=== PATIENT | female | born 1985 | race African-American/Black ===

== ENCOUNTER 2020-05-06 07:12 | Emergency (ER) | payer MEDICAID ==
[2020-05-06] MEDS ORDERED: Metoclopramide 10 MG/2 ML SDV IVPUSH ONE (07:44)
[2020-05-06] MEDS ORDERED: Ketorolac 30 MG/ML SDV IVPUSH SCH (07:45)
[2020-05-06] MEDS ORDERED: Dextrose 5%-0.9% NaCl 1,000 ML IV SCH (07:45)
--- NOTE | 2020-05-06 07:48 | EDM.PDOC ---
ED HPI GENERAL MEDICAL PROBLEM - General Chief Complaint: Genitourinary Problem Stated Complaint: NAUSEA,HEADACHE,BODY ACHES,PAINFUL URINATION,SOB Time Seen by Provider: 05/06/20 07:43 Source of Information: Reports: Patient History Limitations: Reports: No Limitations - History of Present Illness INITIAL COMMENTS - FREE TEXT/NARRATIVE: 34-year-old female of -[place] descent presents to the ED with acute onset of urinary tract symptoms initially with dysuria urgency and frequency dated back to May 03. The following day she started to develop fever chills and associated nausea and vomiting. Condition worsened yesterday. She has not eaten any solids for 2 days. She has managed to keep down small quantities of fluids. Feels very weak dizzy and lightheaded with standing. Denies any diarrhea. Diffuse bilateral back pain perhaps slightly worse on the left side. She reports no history of urinary tract infection in the past. No history of renal lithiasis. Denies cough or sputum production. She has been taking Tylenol Motrin intermittent fashion for fever and back pain relief. She did have significant chills and Rigors overnight. Emesis has been bilious without blood. He was abdominal surgeries that of an appendectomy and a C- section x1. Onset: Gradual Onset Date: 05/03/20 Duration: Day(s):, Getting Worse Location: Reports: Back (Lateral back or flank pain particularly on the left side.), Generalized (Generalized fever and chills.), Other (Predated by dysuria urgency and frequency on May 03.) Quality: Reports: Ache (Scribes her backache is a deep aching constant pain.), Other (Associated intractable nausea and vomiting over the last 36 hours). Denies: Sharp, Stabbing, Throbbing Severity: Moderate Improves with: Reports: None Worsens with: Reports: None Context: Reports: Other (Developed urinary tract symptoms of the lower urinary tract on May 03.). Denies: Activity, Exercise, Lifting, Sick Contact, Trauma Associated Symptoms: Reports: Fever/Chills, Loss of Appetite, Malaise, Nausea/Vomiting, Weakness. 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: NSAIDS Generalized Pain Score (Numeric/FACES): 8 - Related Data Allergies Allergy/AdvReac Type Severity Reaction Status Date / Time No Known Allergies Allergy Verified 05/06/20 07:38 Home Meds: Home Meds Cefdinir [Omnicef] 300 mg PO BID #16 cap 05/06/20 [Rx] Past Medical History [employer]PM [employer]CHIT[employer] History: Reports: : 2 Para: 2 (1 vaginal delivery and one delivery by .) - Past Surgical History GI Surgical History: Reports: Appendectomy Female Surgical History: Reports: Section (X1.) Social & Family History - Tobacco Use Smoking Status *Q: Never Smoker - Caffeine Use Caffeine Use: Reports: None - Recreational Drug Use Recreational Drug Use: No ED ROS GENERAL - Review of Systems Review Of Systems: See Below Constitutional: Reports: Fever, Chills, Malaise, Weakness, Decreased Appetite HEENT: Reports: No Symptoms Respiratory: Reports: No Symptoms Cardiovascular: Reports: No Symptoms Endocrine: Reports: Fatigue GI/Abdominal: Reports: Decreased Appetite, Nausea, Vomiting (Bilious emesis off and on for the last 36 hours.). Denies: Abdominal Pain : Reports: Flank Pain, Frequency. Denies: Incontinence (Lateral flank pain perhaps worse on the left than on the right.), Urgency Musculoskeletal: Reports: No Symptoms Skin: Reports: No Symptoms Neurological: Reports: No Symptoms Psychiatric: Reports: No Symptoms Hematologic/Lymphatic: Reports: No Symptoms Immunologic: Reports: No Symptoms ED EXAM, RENAL/ - Physical Exam Exam: See Below Exam Limited By: No Limitations General Appearance: Alert, WD/WN, Moderate Distress, Other (Appears ill. Temperature is 36.1 with a heart rate of 88 in sinus respiratory is 18. Sats are 98% on room air. BP 104/73.) Eye Exam: Bilateral Eye: Abnormal EOM (No scleral icterus or blepharal pallor.), PERRL Throat/Mouth: Other (Tongue is mildly dry and coated.) Neck: Normal Inspection, Supple, Non-Tender, Full Range of Motion. No: Carotid Bruit, Lymphadenopathy (L), Lymphadenopathy (R) Respiratory/Chest: No Respiratory Distress, Lungs Clear, Normal Breath Sounds, No Accessory Muscle Use, Chest Non-Tender Cardiovascular: Normal Peripheral Pulses, Regular Rate, Rhythm, No Edema, No G allop, No Murmur, No Rub GI/Abdominal: Normal Bowel Sounds, Soft, Non-Tender, No Organomegaly, No Abnormal Bruit, No Mass, Pelvis Stable Back Exam: CVA Tenderness (L), CVA Tenderness (R) (Moderate). No: Decreased Range of Motion ( mild), Muscle Spasm, Paraspinal Tenderness Extremities: Normal Inspection, Normal Range of Motion, Non-Tender, No Pedal Edema Neurological: Alert, Oriented, CN II-XII Intact, Normal Cognition Psychiatric: Other Skin Exam: Warm (LAD affect.), Dry, Intact, Normal Color, No Rash Course - Vital Signs Last Recorded V/S: Last Vital Signs Temp 36.1 C 05/06/20 07:31 Pulse 66 05/06/20 10:17 Resp 18 05/06/20 07:31 BP 104/73 05/06/20 07:31 Pulse Ox 100 05/06/20 10:17 - Orders/Labs/Meds Orders: Active Orders 24 hr Category Date Time Status CORONAVIRUS COVID-19 PCR PHL Stat Lab 05/06/20 10:40 Received CULTURE BLOOD [BC] Stat Lab 05/06/20 07:50 Received CULTURE BLOOD [BC] Stat Lab 05/06/20 08:05 Received CULTURE URINE [RM] Routine Lab 05/06/20 07:38 Received Blood Culture x2 Reflex Set [OM.PC] Stat Oth 05/06/20 07:46 Ordered Labs: Laboratory Tests 05/06/20 05/06/20 05/06/20 Range/Units 07:38 07:50 07:50 WBC 3.49 L (3.98-10.04) K/mm3 RBC 4.94 (3.98-5.22) M/mm3 Hgb 14.4 (11.2-15.7) gm/dl Hct 44.8 (34.1-44.9) % MCV 90.7 (79.4-94.8) fl MCH 29.1 (25.6-32.2) pg MCHC 32.1 L (32.2-35.5) g/dl RDW Std Deviation 43.5 (36.4-46.3) fL Plt Count 347 (182-369) K/mm3 MPV 10.4 (9.4-12.3) fl Neutrophils % (Manual) 39 L (40-60) % Band Neutrophils % 0 (0-10) % Lymphocytes % (Manual) 50 H (20-40) % Atypical Lymphs % 0 % Monocytes % (Manual) 11 H (2-10) % Eosinophils % (Manual) 0 L (0.7-5.8) % Basophils % (Manual) 0 L (0.1-1.2) Platelet Estimate Adequate Anisocytosis 1+ slight RBC Morph Comment Not Reportable D-Dimer, Quantitative (0.19-0.50) mg/L Sodium 137 (136-145) mEq/L Potassium 4.0 (3.5-5.1) mEq/L Chloride 102 (98-107) mEq/L Carbon Dioxide 27 (21-32) mEq/L Anion Gap 12.0 (5-15) BUN 12 (7-18) mg/dL Creatinine 1.0 (0.55-1.02) mg/dL Est Cr Clr Drug Dosing 82.06 mL/min Estimated GFR (MDRD) > 60 (>60) mL/min BUN/Creatinine Ratio 12.0 L (14-18) Glucose 86 (74-106) mg/dL Lactic Acid (0.4-2.0) mmol/L Calcium 8.8 (8.5-10.1) mg/dL Ferritin (8-252) ng/ml Total Bilirubin 0.4 (0.2-1.0) mg/dL AST 18 (15-37) U/L ALT 32 (14-59) U/L Alkaline Phosphatase 62 (46-116) U/L Lactate Dehydrogenase (81-234) U/L Troponin I (0.00-0.056) ng/mL C-Reactive Protein 1.2 H* (<1.0) mg/dL Total Protein 8.5 H (6.4-8.2) g/dl Albumin 3.8 (3.4-5.0) g/dl Globulin 4.7 gm/dL Albumin/Globulin Ratio 0.8 L (1-2) Urine Color Yellow (Yellow) Urine Appearance Slt cloudy H (Clear) Urine pH 5.5 (5.0-8.0) Ur Specific [place] > or = 1.030 (1.005-1.030) Urine Protein 3+ H (Negative) Urine Glucose (UA) Negative (Negative) Urine Ketones Trace H (Negative) Urine Occult Blood Negative (Negative) Urine Nitrite Negative (Negative) Urine Bilirubin Negative (Negative) Urine Urobilinogen 1.0 (0.2-1.0) Ur Leukocyte Esterase Negative (Negative) Urine RBC 0-5 (0-5) /hpf Urine WBC 0-5 (0-5) /hpf Ur Squamous Epith Cells 5-10 H (0-5) /hpf Amorphous Sediment Few H (NOT SEEN) /hpf Urine Bacteria Few (FEW) /hpf Urine Mucus Many H (FEW) /hpf Ketones (0.0-0.3) mM 05/06/20 05/06/20 05/06/20 Range/Units 07:50 07:50 07:50 WBC (3.98-10.04) K/mm3 RBC (3.98-5.22) M/mm3 Hgb (11.2-15.7) gm/dl Hct (34.1-44.9) % MCV (79.4-94.8) fl MCH (25.6-32.2) pg MCHC (32.2-35.5) g/dl RDW Std Deviation (36.4-46.3) fL Plt Count (182-369) K/mm3 MPV (9.4-12.3) fl Neutrophils % (Manual) (40-60) % Band Neutrophils % (0-10) % Lymphocytes % (Manual) (20-40) % Atypical Lymphs % % Monocytes % (Manual) (2-10) % Eosinophils % (Manual) (0.7-5.8) % Basophils % (Manual) (0.1-1.2) Platelet Estimate Anisocytosis RBC Morph Comment D-Dimer, Quantitative 0.23 (0.19-0.50) mg/L Sodium (136-145) mEq/L Potassium (3.5-5.1) mEq/L Chloride (98-107) mEq/L Carbon Dioxide (21-32) mEq/L Anion Gap (5-15) BUN (7-18) mg/dL Creatinine (0.55-1.02) mg/dL Est Cr Clr Drug Dosing mL/min Estimated GFR (MDRD) (>60) mL/min BUN/Creatinine Ratio (14-18) Glucose (74-106) mg/dL Lactic Acid 1.1 (0.4-2.0) mmol/L Calcium (8.5-10.1) mg/dL Ferritin (8-252) ng/ml Total Bilirubin (0.2-1.0) mg/dL AST (15-37) U/L ALT (14-59) U/L Alkaline Phosphatase (46-116) U/L Lactate Dehydrogenase (81-234) U/L Troponin I (0.00-0.056) ng/mL C-Reactive Protein (<1.0) mg/dL Total Protein (6.4-8.2) g/dl Albumin (3.4-5.0) g/dl Globulin gm/dL Albumin/Globulin Ratio (1-2) Urine Color (Yellow) Urine Appearance (Clear) Urine pH (5.0-8.0) Ur Specific [place] (1.005-1.030) Urine Protein (Negative) Urine Glucose (UA) (Negative) Urine Ketones (Negative) Urine Occult Blood (Negative) Urine Nitrite (Negative) Urine Bilirubin (Negative) Urine Urobilinogen (0.2-1.0) Ur Leukocyte Esterase (Negative) Urine RBC (0-5) /hpf Urine WBC (0-5) /hpf Ur Squamous Epith Cells (0-5) /hpf Amorphous Sediment (NOT SEEN) /hpf Urine Bacteria (FEW) /hpf Urine Mucus (FEW) /hpf Ketones 0.17 (0.0-0.3) mM 05/06/20 05/06/20 Range/Units 07:50 07:50 WBC (3.98-10.04) K/mm3 RBC (3.98-5.22) M/mm3 Hgb (11.2-15.7) gm/dl Hct (34.1-44.9) % MCV (79.4-94.8) fl MCH (25.6-32.2) pg MCHC (32.2-35.5) g/dl RDW Std Deviation (36.4-46.3) fL Plt Count (182-369) K/mm3 MPV (9.4-12.3) fl Neutrophils % (Manual) (40-60) % Band Neutrophils % (0-10) % Lymphocytes % (Manual) (20-40) % Atypical Lymphs % % Monocytes % (Manual) (2-10) % Eosinophils % (Manual) (0.7-5.8) % Basophils % (Manual) (0.1-1.2) Platelet Estimate Anisocytosis RBC Morph Comment D-Dimer, Quantitative (0.19-0.50) mg/L Sodium (136-145) mEq/L Potassium (3.5-5.1) mEq/L Chloride (98-107) mEq/L Carbon Dioxide (21-32) mEq/L Anion Gap (5-15) BUN (7-18) mg/dL Creatinine (0.55-1.02) mg/dL Est Cr Clr Drug Dosing mL/min Estimated GFR (MDRD) (>60) mL/min BUN/Creatinine Ratio (14-18) Glucose (74-106) mg/dL Lactic Acid (0.4-2.0) mmol/L Calcium (8.5-10.1) mg/dL Ferritin 186 (8-252) ng/ml Total Bilirubin (0.2-1.0) mg/dL AST (15-37) U/L ALT (14-59) U/L Alkaline Phosphatase (46-116) U/L Lactate Dehydrogenase 236 H (81-234) U/L Troponin I < 0.017 (0.00-0.056) ng/mL C-Reactive Protein (<1.0) mg/dL Total Protein (6.4-8.2) g/dl Albumin (3.4-5.0) g/dl Globulin gm/dL Albumin/Globulin Ratio (1-2) Urine Color (Yellow) Urine Appearance (Clear) Urine pH (5.0-8.0) Ur Specific [place] (1.005-1.030) Urine Protein (Negative) Urine Glucose (UA) (Negative) Urine Ketones (Negative) Urine Occult Blood (Negative) Urine Nitrite (Negative) Urine Bilirubin (Negative) Urine Urobilinogen (0.2-1.0) Ur Leukocyte Esterase (Negative) Urine RBC (0-5) /hpf Urine WBC (0-5) /hpf Ur Squamous Epith Cells (0-5) /hpf Amorphous Sediment (NOT SEEN) /hpf Urine Bacteria (FEW) /hpf Urine Mucus (FEW) /hpf Ketones (0.0-0.3) mM Meds: Medications Discontinued Medications Generic Name Dose Route Start Last Admin Trade Name Freq PRN Reason Stop Dose Admin Hydromorphone HCl 0.5 mg 05/06/20 07:44 05/06/20 08:05 Dilaudid IVPUSH 05/06/20 07:45 0.5 mg ONETIME ONE Administration Dextrose/Sodium Chloride 1,000 mls @ 500 mls/hr 05/06/20 07:45 05/06/20 08:03 Dextrose 5%-Normal Saline IV 500 mls/hr ASDIRECTED ROGER Administration Ceftriaxone Sodium 2 gm/ 100 mls @ 200 mls/hr 05/06/20 09:04 05/06/20 09:33 Sodium Chloride IV 05/06/20 09:33 200 mls/hr ONETIME ONE Administration Ketorolac Tromethamine 30 mg 05/06/20 07:45 05/06/20 08:07 Toradol IVPUSH 30 mg ONETIME ROGER Administration Metoclopramide HCl 7.5 mg 05/06/20 07:44 05/06/20 08:03 Reglan IVPUSH 05/06/20 07:45 7.5 mg ONETIME ONE Administration - Radiology Interpretation Free Text/Narrative:: 34-year-old female of -[place] descent presents to the ED with acute onset of fever chills nausea and vomiting and flank pain. Patient had pre- existing dysuria urgency and frequency last week she believes started May 03. The following day she started to develop fever chills and this is progressed over the weekend. She has been able to keep any solids for the last 48 hours. Has been able to keep down a small quantity of fluids. Urine passage in the ED is extremely dark. She has no history of urinary tract infection in the past. Plan septic work-up will be completed. IV will be D5 normal saline at 500 mils per hour. We will give Dilaudid 0.5 mg IV with Toradol 30 mg IV and Reglan 7.5 mg IV for nausea and vomiting relief. - Re-Assessments/Exams Free Text/Narrative Re-Assessment/Exam: 05/06/20 08:22Also shows slightly cloudy urine with 3+ proteinuria negative nitrate negative leukocyte esterase 5-10 squamous epithelial cells few bacteria much mucus. 05/06/20 08:25 since the urinalysis does not suggest a urinary tract infection although it could suggest a pyelonephritis without any significant bacteria. COVID screening will be obtained and COVID testing will be obtained. Free Text/Narrative Re-Assessment/Exam: 05/06/20 09:00 she is feeling better with much less flank pain and no further nausea. X-ray done portably is within normal limits showing no pulmonary infiltrates and normal cardiac silhouette. White count is low at 3.49 with 50% lymphocytes and 39% neutrophils. Hemoglobin is 14.4 with hematocrit of 44.8. Platelet count is 347,000. D-dimer is normal at 0.23. Sodium is 137 with a potassium of 4.0. Chloride 102 with a bicarb of 27. Anion gap is 12.0. BUN is 12 with a creatinine of 1.0 and a GFR greater than 60. Glucose is 86 with a lactic acid of 1.1. Calcium is 8.8. Liver function is normal. LDH is mildly elevated at 236. Troponin I is less than 0.017. C-reactive protein is minimally elevated at 1.2. Total protein is 8.5 albumin fraction 3.8. Serum ketones are 0.17 . Unlikely the patient has pyelonephritis although her white count is on the low side and suggest that she has a viral infection. Her clinical presentation is that of a pyelonephritis. Urine culture will be ordered. Departure - Departure Time of Disposition: 10:13 Disposition: Home, Self-Care 01 Condition: Fair Clinical Impression: Pyelonephritis - Discharge Information *PRESCRIPTION DRUG MONITORING PROGRAM REVIEWED*: Not Applicable *COPY OF PRESCRIPTION DRUG MONITORING REPORT IN PATIENT HARPER: Not Applicable Prescriptions: Cefdinir [Omnicef] 300 mg PO BID #16 cap Instructions: Pyelonephritis, Adult, [id number] Referrals: PCP,None [Primary Care Provider] - Forms: ED Department Discharge, ED Return to Work/School Form Additional Instructions: Evaluation in the emergency room today in regards to bilateral flank pain worse on the left as compared to the right. This is preceded by urinary tract symptoms of dysuria urgency and frequency 2 days prior. Lab tests reveal a low normal white blood cell count. Markers for inflammation are only minimally elevated and the urine is not been showing any signs of any pus cells. It is showing squamous epithelial cells which usually come from the kidney. Sometimes you can have a kidney infection without a positive urinalysis. It is felt that you are likely suffering from a kidney infection clinically. You were therefore treated with initial dose of antibiotic in the emergency room with Rocephin 2 g IV. Continue Motrin 600 mg every 6 hours to reduce pain and inflammation in the back and kidney area. You will need to start oral antibiotic Omnicef 300 mg twi ce daily for the next 8 days starting tomorrow morning. Expect marked improvement in back pain and symptoms over the next 48 to 72 hours. If not you should be seen again. A COVID-19 screen was obtained but the results were not be available until tomorrow afternoon. You should quarantine until the results are known to you. Sepsis Event Note (ED) - Evaluation Sepsis Screening Result: No Definite Risk - Focused Exam Vital Signs: Vital Signs Temp Pulse Resp BP Pulse Ox 05/06/20 10:17 66 100 05/06/20 07:31 36.1 C 88 18 104/73 98 - My Orders Last 24 Hours: My Active Orders 05/06/20 07:38 CULTURE URINE [RM] Routine 05/06/20 07:46 Blood Culture x2 Reflex Set [OM.PC] Stat 05/06/20 07:50 CULTURE BLOOD [BC] Stat 05/06/20 08:05 CULTURE BLOOD [BC] Stat 05/06/20 10:40 CORONAVIRUS COVID-19 PCR PHL Stat - Assessment/Plan Last 24 Hours: My Active Orders 05/06/20 07:38 CULTURE URINE [RM] Routine 05/06/20 07:46 Blood Culture x2 Reflex Set [OM.PC] Stat 05/06/20 07:50 CULTURE BLOOD [BC] Stat 05/06/20 08:05 CULTURE BLOOD [BC] Stat 05/06/20 10:40 CORONAVIRUS COVID-19 PCR PHL Stat
[2020-05-06] MEDS: HYDROmorphone 0.5 MG/0.5 ML Syringe IVPUSH ONE ×2 (08:05→08:06)
--- NOTE | 2020-05-06 08:52 | CR ---
Chest: Portable view of the chest was obtained. Comparison: No prior chest imaging is available. Heart size and mediastinum are normal. Lungs are clear with no acute parenchymal change. Minimal scoliosis is present within the spine. Impression: 1. Nothing acute is appreciated on portable chest x-ray. Diagnostic code #1 This report was dictated in MDT
[2020-05-06] MEDS ORDERED: cefTRIAXone 2 GM in Sodium Chloride 0.9% 100 ML IV ONE (09:04)
== END 2020-05-06 10:47 | disposition home or self-care (01) ==
LOC: JD.ED 07:12
DX: U07.1 COVID-19 (principal); N12 Tubulo-interstitial nephritis, not specified as acute or chronic; Z98.890 Other specified postprocedural states; Z90.49 Acquired absence of other specified parts of digestive tract
CPT/HCPCS: 36415; 71045; 80053; 81001; 82009; 82728; 83605; 83615; 84484; 85007; 85027; 85379; 86140; 87040; 87086; 87635; 96361; 96365; 96375; 99284; J0696; J1170; J1885; J2765; J7042; J7050; U0002

== ENCOUNTER 2020-05-07 06:45 | Inpatient (IN) | payer MEDICAID ==
[2020-05-07] MEDS ORDERED: Metoclopramide 10 MG/2 ML SDV IVPUSH ONE (07:02)
--- NOTE | 2020-05-07 07:05 | EDM.PDOC ---
ED HPI GENERAL MEDICAL PROBLEM - General Chief Complaint: Flank Pain Stated Complaint: sob dizzy Time Seen by Provider: 05/07/20 07:05 Source of Information: Reports: Patient History Limitations: Reports: No Limitations - History of Present Illness INITIAL COMMENTS - FREE TEXT/NARRATIVE: 34-year-old female of -[place] descent presents to the ED with continued left flank mid back pain associated with intractable nausea and vomiting. She was seen through the ED yesterday morning with a history of dysuria urgency and frequency predating the development of left flank pain by 3 days. Her urinalysis was not all that impressive with a lot of squamous epithelial cells and 3+ proteinuria and positive nitrates but no white cells. She was complaining of shortness of breath which I interpreted as difficulty taking a deep breath due to left flank pain. She has no history of kidney stones. Since going home she has had intractable pain and bilious emesis. No hematemesis. Has not been able to eat or drink at all. Was placed on cefdinir 300 mg twice daily which she is not been able to keep down. She was given a dose of Rocephin 2 g intravenously yesterday for suspect pyelonephritis. Yesterday she felt much more febrile. Today she is afebrile. she appears to be in significant discomfort however. Onset: Gradual (Has gradually been getting worse over the last 4 days with initial onset of dysuria urgency and frequency on Wednesday, May 03.) Onset Date: 05/03/20 (Left flank pain started the night before last and continued all day Wednesday and yesterday.) Duration: Day(s):, Constant, Getting Worse Location: Reports: Back (Left flank pain left upper abdominal pain) Quality: Reports: Ache (He does appear to be a colicky component to the pain) Severity: Severe Improves with: Reports: None (9 out of 10) Worsens with: Reports: Eating Context: Denies: Activity, Exercise, Lifting, Sick Contact, Trauma, Other Associated Symptoms: Reports: Loss of Appetite, Malaise, Nausea/Vomiting, Shortness of Breath. 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, Other (see below) (Which she cannot keep down.) Left Flank Pain Score (Numeric/FACES): 10 - Related Data Allergies Allergy/AdvReac Type Severity Reaction Status Date / Time No Known Allergies Allergy Verified 05/07/20 06:47 Home Meds: Home Meds Cefdinir [Omnicef] 300 mg PO BID #16 cap 05/06/20 [Rx] Acetaminophen [Tylenol Arthritis] 650 mg PO ASDIRECTED PRN 05/07/20 [History] Past Medical History - Past Health History Medical/Surgical History: Denies Medical/Surgical History Genitourinary History: Reports: Pyelonephritis 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 Denies: Fever HEENT: Reports: No Symptoms Respiratory: Reports: No Symptoms Cardiovascular: Reports: No Symptoms Endocrine: Reports: Fatigue GI/Abdominal: Reports: Abdominal Pain (Left upper quadrant abdominal pain primarily originating in the left flank area.), Decreased Appetite, Nausea, Vomiting (Bilious emesis and dry heaving. No hematemesis.) : Reports: No Symptoms Musculoskeletal: Reports: Back Pain Skin: Reports: No Symptoms (Left flank and mid back pain.) Neurological: Reports: No Symptoms Psychiatric: Reports: No Symptoms Hematologic/Lymphatic: Reports: No Symptoms Immunologic: Reports: No Symptoms ED EXAM, GI/ABD - Physical Exam Exam: See Below Exam Limited By: No Limitations General Appearance: Alert, WD/WN, Moderate Distress, Other (He is in a good deal of pain. Temperature is 36.6 pulse is 97 sinus respiratory 17 BP 97/85 pulse ox 99%.) Eyes: Bilateral: Normal Appearance (No scleral icterus or blepharal pallor.) Throat/Mouth: Other Head: No: Atraumatic, Normocephalic (Tongue is dry and coated.) Neck: Normal Inspection, Supple, Non-Tender, Full Range of Motion. No: Lymphadenopathy (L), Lymphadenopathy (R) Respiratory/Chest: No Respiratory Distress, Lungs Clear, Normal Breath Sounds, Chest Non-Tender Cardiovascular: Normal Peripheral Pulses, Regular Rate, Rhythm, No Edema, No Gallop, No Murmur, No Rub GI/Abdominal Exam: No Organomegaly, Tender (Very tender in the epigastrium and along the left costal margin.), Abnormal Bowel Sounds (Bowel sounds are very few and far between in the abdomen.). No: Guarding, Rigid, Rebound Back Exam: CVA Tenderness (L) (Marked left CVA and back pain. There is no paraspinal muscle spasm on the left side or right side.), CVA Tenderness (R) Extremities: Normal Inspection (Minimal.), Normal Range of Motion, Non-Tender, No Pedal Edema Neurological: Alert, Oriented, CN II-XII Intact, Normal Cognition Psychiatric: Anxious, Other (In a good deal of pain.) Skin Exam: Warm, Dry, Intact, Normal Color, No Rash EKG INTERPRETATION EKG Date: 05/07/20 Time: 08:16 Rhythm: NSR Rate (Beats/Min): 84 Jachin: Normal P-Wave: Present QRS: Normal EKG Interpretation Comments: Normal ECG Course - Vital Signs Last Recorded V/S: Last Vital Signs Temp 36.9 C 05/07/20 10:40 Pulse 95 05/07/20 10:40 Resp 18 05/07/20 10:40 BP 117/72 05/07/20 10:40 Pulse Ox 100 05/07/20 10:40 - Orders/Labs/Meds Orders: Active Orders 24 hr Category Date Time Status EKG Documentation Completion [RC] STAT Care 05/07/20 08:14 Active Sodium Chloride 0.9% [Normal Saline] 1,000 ml Med 05/07/20 07:15 Active IV ASDIRECTED cefTRIAXone [Rocephin] 2 gm Med 05/07/20 08:15 Active Sodium Chloride 0.9% [Normal Saline] 100 ml IV Q24H Blood Culture x2 Reflex Set [OM.PC] Stat Oth 05/07/20 08:05 Ordered Medication Orders Acetaminophen (Tylenol) 650 mg PO Q6H PRN PRN Reason: Pain (Mild 1-3) or Fever Hydrocodone Bitart/Acetaminophen ([place] 325-5 Mg) 1 tab PO Q6H PRN PRN Reason: Pain (moderate 4-6) Albuterol (Proventil Hfa) 0 gm INH Q4H PRN PRN Reason: SHORTNESS OF BREATH Aspirin (Halfprin) 81 mg PO DAILY [facility] Enoxaparin Sodium (Lovenox) 40 mg SUBCUT DAILY [facility] Sodium Chloride (Normal Saline) 1,000 mls @ 500 mls/hr IV ASDIRECTED [facility] Last Admin: 05/07/20 07:16 Dose: 150 mls/hr Documented by: KATHERINE Ceftriaxone Sodium 2 gm/ (Sodium Chloride) 100 mls @ 200 mls/hr IV Q24H [facility] Last Admin: 05/07/20 09:05 Dose: 200 mls/hr Documented by: KATHERINE Sodium Chloride (Normal Saline) 1,000 mls @ 30 mls/hr IV ASDIRECTED [facility] Azithromycin 500 mg/ Sodium (Chloride) 250 mls @ 250 mls/hr IV Q24H [facility] Last Admin: 05/07/20 15:35 Dose: 250 mls/hr Documented by: BEE Mometasone Furoate/Formoterol Fumar ([place] 100-5 Mcg) 2 puff IH BID [facility] Morphine Sulfate (Morphine) 2 mg IVPUSH Q4H PRN PRN Reason: Pain (severe 7-10) Ondansetron HCl (Zofran) 4 mg IVPUSH Q4H PRN PRN Reason: Nausea/Vomiting Last Admin: 05/07/20 11:49 Dose: 4 mg Documented by: BEE Pantoprazole Sodium (Protonix) 40 mg PO QPM [facility] Senna/Docusate Sodium (Senna Plus) 2 tab PO BEDTIME [facility] Labs: Laboratory Tests 05/07/20 05/07/20 05/07/20 Range/Units 07:20 07:20 07:20 WBC 5.39 (3.98-10.04) K/mm3 RBC 4.56 (3.98-5.22) M/mm3 Hgb 13.5 (11.2-15.7) gm/dl Hct 41.6 (34.1-44.9) % MCV 91.2 (79.4-94.8) fl MCH 29.6 (25.6-32.2) pg MCHC 32.5 (32.2-35.5) g/dl RDW Std Deviation 42.7 (36.4-46.3) fL Plt Count 333 (182-369) K/mm3 MPV 9.8 (9.4-12.3) fl Neut % (Auto) 59.2 (34.0-71.1) % Lymph % (Auto) 33.8 (19.3-51.7) % [place] % (Auto) 5.8 (4.7-12.5) % Eos % (Auto) 0.4 L (0.7-5.8) Baso % (Auto) 0.6 (0.1-1.2) % Neut # (Auto) 3.20 (1.56-6.13) K/mm3 Lymph # (Auto) 1.82 (1.18-3.74) K/mm3 [place] # (Auto) 0.31 (0.24-0.36) K/mm3 Eos # (Auto) 0.02 L (0.04-0.36) K/mm3 Baso # (Auto) 0.03 (0.01-0.08) K/mm3 D-Dimer, Quantitative 0.37 (0.19-0.50) mg/L Sodium 137 (136-145) mEq/L Potassium 4.0 (3.5-5.1) mEq/L Chloride 103 (98-107) mEq/L Carbon Dioxide 25 (21-32) mEq/L Anion Gap 13.0 (5-15) BUN 9 (7-18) mg/dL Creatinine 1.1 H (0.55-1.02) mg/dL Est Cr Clr Drug Dosing 74.60 mL/min Estimated GFR (MDRD) > 60 (>60) mL/min BUN/Creatinine Ratio 8.2 L (14-18) Glucose 91 (74-106) mg/dL Lactic Acid (0.4-2.0) mmol/L Calcium 8.5 (8.5-10.1) mg/dL Ferritin (8-252) ng/ml Total Bilirubin 0.3 (0.2-1.0) mg/dL AST 22 (15-37) U/L ALT 25 (14-59) U/L Alkaline Phosphatase 57 (46-116) U/L Lactate Dehydrogenase 221 (81-234) U/L Troponin I (0.00-0.056) ng/mL C-Reactive Protein 2.0 H* (<1.0) mg/dL Total Protein 7.7 (6.4-8.2) g/dl Albumin 3.3 L (3.4-5.0) g/dl Globulin 4.4 gm/dL Albumin/Globulin Ratio 0.8 L (1-2) Lipase 83 (73-393) U/L Ketones (0.0-0.3) mM SARS Virus RNA (PCR) (NEGATIVE) 05/07/20 05/07/20 05/07/20 Range/Units 07:20 07:20 07:20 WBC (3.98-10.04) K/mm3 RBC (3.98-5.22) M/mm3 Hgb (11.2-15.7) gm/dl Hct (34.1-44.9) % MCV (79.4-94.8) fl MCH (25.6-32.2) pg MCHC (32.2-35.5) g/dl RDW Std Deviation (36.4-46.3) fL Plt Count (182-369) K/mm3 MPV (9.4-12.3) fl Neut % (Auto) (34.0-71.1) % Lymph % (Auto) (19.3-51.7) % [place] % (Auto) (4.7-12.5) % Eos % (Auto) (0.7-5.8) Baso % (Auto) (0.1-1.2) % Neut # (Auto) (1.56-6.13) K/mm3 Lymph # (Auto) (1.18-3.74) K/mm3 [place] # (Auto) (0.24-0.36) K/mm3 Eos # (Auto) (0.04-0.36) K/mm3 Baso # (Auto) (0.01-0.08) K/mm3 D-Dimer, Quantitative (0.19-0.50) mg/L Sodium (136-145) mEq/L Potassium (3.5-5.1) mEq/L Chloride (98-107) mEq/L Carbon Dioxide (21-32) mEq/L Anion Gap (5-15) BUN (7-18) mg/dL Creatinine (0.55-1.02) mg/dL Est Cr Clr Drug Dosing mL/min Estimated GFR (MDRD) (>60) mL/min BUN/Creatinine Ratio (14-18) Glucose (74-106) mg/dL Lactic Acid (0.4-2.0) mmol/L Calcium (8.5-10.1) mg/dL Ferritin 207 (8-252) ng/ml Total Bilirubin (0.2-1.0) mg/dL AST (15-37) U/L ALT (14-59) U/L Alkaline Phosphatase (46-116) U/L Lactate Dehydrogenase (81-234) U/L Troponin I < 0.017 (0.00-0.056) ng/mL C-Reactive Protein (<1.0) mg/dL Total Protein (6.4-8.2) g/dl Albumin (3.4-5.0) g/dl Globulin gm/dL Albumin/Globulin Ratio (1-2) Lipase (73-393) U/L Ketones 0.19 (0.0-0.3) mM SARS Virus RNA (PCR) (NEGATIVE) 05/07/20 05/07/20 Range/Units 07:34 08:35 WBC (3.98-10.04) K/mm3 RBC (3.98-5.22) M/mm3 Hgb (11.2-15.7) gm/dl Hct (34.1-44.9) % MCV (79.4-94.8) fl MCH (25.6-32.2) pg MCHC (32.2-35.5) g/dl RDW Std Deviation (36.4-46.3) fL Plt Count (182-369) K/mm3 MPV (9.4-12.3) fl Neut % (Auto) (34.0-71.1) % Lymph % (Auto) (19.3-51.7) % [place] % (Auto) (4.7-12.5) % Eos % (Auto) (0.7-5.8) Baso % (Auto) (0.1-1.2) % Neut # (Auto) (1.56-6.13) K/mm3 Lymph # (Auto) (1.18-3.74) K/mm3 [place] # (Auto) (0.24-0.36) K/mm3 Eos # (Auto) (0.04-0.36) K/mm3 Baso # (Auto) (0.01-0.08) K/mm3 D-Dimer, Quantitative (0.19-0.50) mg/L Sodium (136-145) mEq/L Potassium (3.5-5.1) mEq/L Chloride (98-107) mEq/L Carbon Dioxide (21-32) mEq/L Anion Gap (5-15) BUN (7-18) mg/dL Creatinine (0.55-1.02) mg/dL Est Cr Clr Drug Dosing mL/min Estimated GFR (MDRD) (>60) mL/min BUN/Creatinine Ratio (14-18) Glucose (74-106) mg/dL Lactic Acid 0.9 (0.4-2.0) mmol/L Calcium (8.5-10.1) mg/dL Ferritin (8-252) ng/ml Total Bilirubin (0.2-1.0) mg/dL AST (15-37) U/L ALT (14-59) U/L Alkaline Phosphatase (46-116) U/L Lactate Dehydrogenase (81-234) U/L Troponin I (0.00-0.056) ng/mL C-Reactive Protein (<1.0) mg/dL Total Protein (6.4-8.2) g/dl Albumin (3.4-5.0) g/dl Globulin gm/dL Albumin/Globulin Ratio (1-2) Lipase (73-393) U/L Ketones (0.0-0.3) mM SARS Virus RNA (PCR) Positive H (NEGATIVE) Meds: Medications Generic Name Dose Route Start Last Admin Trade Name Freq PRN Reason Stop Dose Admin Acetaminophen 650 mg 05/07/20 13:27 Tylenol PO Q6H PRN Pain (Mild 1-3) or Fever Hydrocodone Bitart/Acetaminophen 1 tab 05/07/20 13:27 [place] 325-5 Mg PO Q6H PRN Pain (moderate 4-6) Albuterol 0 gm 05/07/20 14:10 Proventil Hfa INH Q4H PRN SHORTNESS OF BREATH Aspirin 81 mg 05/08/20 09:00 Halfprin PO DAILY [facility] Enoxaparin Sodium 40 mg 05/08/20 09:00 Lovenox SUBCUT DAILY [facility] Sodium Chloride 1,000 mls @ 500 mls/hr 05/07/20 07:15 05/07/20 07:16 Normal Saline IV 150 mls/hr ASDIRECTED [facility] Administration Ceftriaxone Sodium 2 gm/ 100 mls @ 200 mls/hr 05/07/20 08:15 05/07/20 09:05 Sodium Chloride IV 200 mls/hr Q24H [facility] Administration Sodium Chloride 1,000 mls @ 30 mls/hr 05/07/20 13:30 Normal Saline IV ASDIRECTED [facility] Azithromycin 500 mg/ Sodium 250 mls @ 250 mls/hr 05/07/20 15:00 05/07/20 15:35 Chloride IV 250 mls/hr Q24H [facility] Administration Mometasone Furoate/Formoterol Fumar 2 puff 05/07/20 21:00 Dulera 100-5 Mcg IH BID [facility] Morphine Sulfate 2 mg 05/07/20 13:27 Morphine IVPUSH Q4H PRN Pain (severe 7-10) Ondansetron HCl 4 mg 05/07/20 11:21 05/07/20 11:49 Zofran IVPUSH 4 mg Q4H PRN Administration Nausea/Vomiting Pantoprazole Sodium 40 mg 05/07/20 18:00 Protonix PO QPM [facility] Senna/Docusate Sodium 2 tab 05/07/20 21:00 Senna Plus PO BEDTIME [facility] Discontinued Medications Generic Name Dose Route Start Last Admin Trade Name Freq PRN Reason Stop Dose Admin Hydromorphone HCl 1 mg 05/07/20 07:18 05/07/20 07:31 Dilaudid IVPUSH 05/07/20 07:19 1 mg ONETIME ONE Administration Hydromorphone HCl 1 mg 05/07/20 11:21 05/07/20 11:49 Dilaudid IVPUSH 1 mg Q2H PRN Administration Pain Metoclopramide HCl 7.5 mg 05/07/20 07:02 05/07/20 07:16 Reglan IVPUSH 05/07/20 07:03 7.5 mg ONETIME ONE Administration - Radiology Interpretation Free Text/Narrative:: 34-year-old female presents once again to the ED with persistent left flank pain which makes it difficult for her to take a deep breath and she has a subjective sensation of being short of breath. Pain has precipitated intractable nausea and vomiting of bilious emesis. This started gradually with dysuria urgency frequency symptoms on Wednesday, May 03 which has progressively worsened over the last 3 days. She was seen through the ED yesterday and worked up and had very little findings other than squamous epithelial cells in the urine and 3+ proteinuria but no pus cells. It was suspect that she had a left-sided pyelonephritis. There was no blood in the urine. Her d-dimer was negative. Chest x-ray was within normal limits as well. Plan IV normal saline at 500 mils per hour. Given Dilaudid 1 mg IV and Reglan 7.5 mg IV for pain and nausea relief. She will have routine lab performed including an LDH and repeat urinalysis when 1 becomes available. She will have CT of the abdomen with out any contrast per renal protocol initially. And whether or not she may have a proximal renal stone. - Re-Assessments/Exams Free Text/Narrative Re-Assessment/Exam: 05/07/20 08:02 CT scan of the abdomen performed without any contrast reveals a pneumonic infiltrate in the lower left lung field. No pleural effusion. CT of the abdomen reveals liver to be homogeneous without any intraductal dilatation. Small hiatal hernia appreciated. Gallbladder contains multiple faint calcification at the fundus suggestive of sludge or perhaps very small stones. Pancreas appears to be within normal limits. Adrenal glands are normal. Both kidneys appear to be within normal limits and the ureters show no signs of obstruction. There are few calcifications or phleboliths in the pelvis adjacent to the uterus. No obvious ovarian cysts. No free fluid in the pelvis. Bowel contains a fair amount of stool throughout. Appendix is visualized and normal. She apparently had 18 inches of her distal ileum removed in the past. Plan COVID-19 test will be performed. 05/07/20 08:25 Lab work reveals a white count of 5.39. The auto differential shows 59.2% neutrophils. Hemoglobin is 13.5 with hematocrit of 41.6. Platelet count is 333,000. D-dimer is 0.37. Sodium 137 with a potassium of 4.0 chloride 103 with a bicarb of 25. Anion gap is 13.0. BUN is 9 with a creatinine of 1.1. Estimated GFR is greater than 60. Glucose is 91 with a lactic acid of 0.9. Calcium is 8.5. Liver function is normal lactic dehydrogenase is 221. C- reactive protein is 2.0 total protein 7.7 lipase normal at 83. Since she continues to be quite sick and unable to tolerate food she will need admission to the hospital. I will discuss the case with on-call hospitalist Dr. Emmanuel. 05/07/20 09:21 COVID-19 test reported as positive. Will now discuss the case with Dr. Emmanuel. Because of her pain and nausea and vomiting she will need to stay in the hospital until she can at least tolerate fluids and a diet. 05/07/20 09:23 have discussed the case with Dr. Emmanuel and he is excepted care. Patient will be admitted to the med surgery floor. Departure - Departure Time of Disposition: 10:30 Disposition: Admitted As Inpatient 65 Condition: Fair Clinical Impression: Flank pain, acute, COVID-19 Pneumonia Qualifiers: Laterality: left Lung location: lower lobe of lung - Discharge Information *PRESCRIPTION DRUG MONITORING PROGRAM REVIEWED*: Not Applicable *COPY OF PRESCRIPTION DRUG MONITORING REPORT IN PATIENT HARPER: Not Applicable Sepsis Event Note (ED) - Evaluation Sepsis Screening Result: No Definite Risk - Focused Exam Vital Signs: Vital Signs Temp Pulse Resp BP Pulse Ox 05/07/20 06:47 36.6 C 97 17 97/85 99 - My Orders Last 24 Hours: My Active Orders 05/07/20 07:15 Sodium Chloride 0.9% [Normal Saline] 1,000 ml IV ASDIRECTED 05/07/20 08:05 Blood Culture x2 Reflex Set [OM.PC] Stat 05/07/20 08:14 EKG Documentation Completion [RC] STAT 05/07/20 08:15 cefTRIAXone [Rocephin] 2 gm Sodium Chloride 0.9% [Normal Saline] 100 ml IV Q24H - Assessment/Plan Last 24 Hours: My Active Orders 05/07/20 07:15 Sodium Chloride 0.9% [Normal Saline] 1,000 ml IV ASDIRECTED 05/07/20 08:05 Blood Culture x2 Reflex Set [OM.PC] Stat 05/07/20 08:14 EKG Documentation Completion [RC] STAT 05/07/20 08:15 cefTRIAXone [Rocephin] 2 gm Sodium Chloride 0.9% [Normal Saline] 100 ml IV Q24H
[2020-05-07] MEDS ORDERED: Sodium Chloride 0.9% 1,000 ML IV SCH (07:15)
[2020-05-07] MEDS ORDERED: HYDROmorphone 1 MG/ML Syringe IVPUSH ONE (07:18)
--- NOTE | 2020-05-07 08:28 | CT ---
CT abdomen and pelvis Technique: Multiple axial sections were obtained from above the dome of the diaphragm inferiorly to the pubic symphysis. Intravenous and oral contrast not utilized. Study has been performed as a ureteral stone protocol. Findings: Areas of consolidation are noted within the left lung base suspicious for pneumonia. Kidneys show no abnormal calcifications. No ureteral dilatation or ureteral stone is seen. Other findings: Liver contains no focal parenchymal abnormality. Gallbladder shows several slightly calcified small gallstones. Spleen appears within normal limits. Small hiatal hernia is noted. Adrenal glands show no nodule. Pancreas shows no discrete abnormality. Aorta shows no aneurysm. No retroperitoneal adenopathy or mesenteric abnormalities are seen. Surgical material is seen off the tip of the cecum. Appendix is not visualized. No pelvic mass or adenopathy is appreciated. No free fluid or inflammatory change is appreciated. Bone window settings were reviewed. No acute osseous finding is appreciated. Impression: 1. Consolidation within portions of the left lower lung most likely representing pneumonia. 2. No renal calculi, ureteral dilatation or ureteral stone is seen. 3. Several small calcified gallstones within the gallbladder. 4. No other acute finding is seen on noncontrast CT study of the abdomen and pelvis. Diagnostic code #3 This report was dictated in MDT
[2020-05-07] MEDS: cefTRIAXone 2 GM in Sodium Chloride 0.9% 100 ML IV SCH (09:05)
[2020-05-07] MEDS ORDERED: HYDROmorphone 1 MG/ML Syringe IVPUSH PRN (11:21)
[2020-05-07] MEDS: Ondansetron 4 MG/2 ML SDV IVPUSH PRN ×2 (11:49→16:08)
[2020-05-07] MEDS ORDERED: Morphine 2 MG/ML SYRINGE IVPUSH PRN (13:27)
[2020-05-07] MEDS ORDERED: Acetaminophen 325 MG Tab PO PRN (13:27)
--- NOTE | 2020-05-07 14:01 | PCM.HP.2 ---
<Camilo Shea N - Last Filed: 05/07/20 14:42> H&P History of Present Illness - General Date of Service: 05/07/20 Admit Problem/Dx: Admission Diagnosis/Problem Admission Diagnosis/Problem Viral pneumonia Source of Information: Patient - History of Present Illness Initial Comments - Free Text/Narative: Mrs. Garcia is a pleasant 34-year-old [place] female, without any significant past medical history. Patient presented to the ED today for worsening left flank pain associated with intractable nausea and vomiting. Patient reported for the past week, she has been having episodes of intractable nausea and vomiting as well as decreased p.o. intake. And 3 days ago, started having worsening of bilateral pain, occasional fevers and chills. Patient was recently seen yesterday in the ER where the patient reported dysuria/frequency before developing flank pain. UA that was done to the patient on both presentation negative for nitrites and leukocyte esterase. And reported over the past 3 days, she has been having worsening shortness of breath especially with exertion which the patient states flank pain precipitates shortness of breath. The patient describes pain as sharp in nature with radiation to the upper chest. Relieved with rest. Today denies dysuria, no diarrhea but reported epigastric pain. CT scan of abdomen and pelvis that was done to the patient, consistent for left lobe pneumonia, multiple gallstones within the gallbladder but negative for renal calculi .Given worsening of pain and shortness of breath patient decided to come to the hospital for further evaluation and will be admitted for further management.. Onset of Symptoms: Reports: Gradual Left Flank Pain Score (Numeric/FACES): 10 - Related Data Allergies/Adverse Reactions: Allergies Allergy/AdvReac Type Severity Reaction Status Date / Time No Known Allergies Allergy Verified 05/07/20 06:47 Home Medications: Home Meds Cefdinir [Omnicef] 300 mg PO BID #16 cap 05/06/20 [Rx] Acetaminophen [Tylenol Arthritis] 650 mg PO ASDIRECTED PRN 05/07/20 [History] Past Medical History - Past Health History Medical/Surgical History: Denies Medical/Surgical History Respiratory History: Reports: SOB Other Respiratory History: stated has had SOB since 05/03/2020 Gastrointestinal History: Reports: None Genitourinary History: Reports: Pyelonephritis 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: Neurological History: Reports: Headaches, Chronic Other Neuro History: for the past week - Past Surgical History GI Surgical History: Reports: Appendectomy Female Surgical History: Reports: Section Social & Family History - Family History Family Medical History: Noncontributory - Tobacco Use Smoking Status *Q: Never Smoker - Caffeine Use Caffeine Use: Reports: None - Alcohol Use Date of Last Drink: 04/27/20 - Recreational Drug Use Recreational Drug Use: No - Living Situation & Occupation Living situation: Reports: Occupation: Employed H&P Review of Systems - Review of Systems: Review Of Systems: See Below Exam - Exam Exam: See Below (.) - Vital Signs Vital Signs: Last Vital Signs Temp 98.4 F 05/07/20 10:40 Pulse 95 05/07/20 10:40 Resp 18 05/07/20 10:40 BP 117/72 05/07/20 10:40 Pulse Ox 100 05/07/20 10:40 Weight: 80.104 kg - Exam General: Alert, Oriented, Moderate Distress, Other HEENT: Conjunctiva Clear, EACs Clear, EOMI, Hearing Intact, Other (ORAL MUCOSA IS DRY) Neck: Supple, Trachea Midline Lungs: Clear to Auscultation, Normal Respiratory Effort Cardiovascular: Regular Rate, Regular Rhythm GI/Abdominal Exam: Normal Bowel Sounds, Tender (Tenderness noted to palpation IN EPIGASTRIC REGION), Other Back Exam: CVA Tenderness (L), CVA Tenderness (R) Extremities: Normal Inspection, Normal Range of Motion, Non-Tender Skin: Warm, Dry, Intact Neuro Extensive - Mental Status: Alert, Oriented x3, Normal Mood/Affect, Normal Cognition Psychiatric: Alert, Normal Affect - Patient Data Lab Results Last 24 hrs: Laboratory Results - last 24 hr 05/07/20 05/07/20 05/07/20 Range/Units 07:20 07:20 07:20 WBC 5.39 (3.98-10.04) K/mm3 RBC 4.56 (3.98-5.22) M/mm3 Hgb 13.5 (11.2-15.7) gm/dl Hct 41.6 (34.1-44.9) % MCV 91.2 (79.4-94.8) fl MCH 29.6 (25.6-32.2) pg MCHC 32.5 (32.2-35.5) g/dl RDW Std Deviation 42.7 (36.4-46.3) fL Plt Count 333 (182-369) K/mm3 MPV 9.8 (9.4-12.3) fl Neut % (Auto) 59.2 (34.0-71.1) % Lymph % (Auto) 33.8 (19.3-51.7) % Fisher % (Auto) 5.8 (4.7-12.5) % Eos % (Auto) 0.4 L (0.7-5.8) Baso % (Auto) 0.6 (0.1-1.2) % Neut # (Auto) 3.20 (1.56-6.13) K/mm3 Lymph # (Auto) 1.82 (1.18-3.74) K/mm3 Fisher # (Auto) 0.31 (0.24-0.36) K/mm3 Eos # (Auto) 0.02 L (0.04-0.36) K/mm3 Baso # (Auto) 0.03 (0.01-0.08) K/mm3 D-Dimer, Quantitative 0.37 (0.19-0.50) mg/L Sodium 137 (136-145) mEq/L Potassium 4.0 (3.5-5.1) mEq/L Chloride 103 (98-107) mEq/L Carbon Dioxide 25 (21-32) mEq/L Anion Gap 13.0 (5-15) BUN 9 (7-18) mg/dL Creatinine 1.1 H (0.55-1.02) mg/dL Est Cr Clr Drug Dosing 74.60 mL/min Estimated GFR (MDRD) > 60 (>60) mL/min BUN/Creatinine Ratio 8.2 L (14-18) Glucose 91 (74-106) mg/dL Lactic Acid (0.4-2.0) mmol/L Calcium 8.5 (8.5-10.1) mg/dL Ferritin (8-252) ng/ml Total Bilirubin 0.3 (0.2-1.0) mg/dL AST 22 (15-37) U/L ALT 25 (14-59) U/L Alkaline Phosphatase 57 (46-116) U/L Lactate Dehydrogenase 221 (81-234) U/L Troponin I (0.00-0.056) ng/mL C-Reactive Protein 2.0 H* (<1.0) mg/dL Total Protein 7.7 (6.4-8.2) g/dl Albumin 3.3 L (3.4-5.0) g/dl Globulin 4.4 gm/dL Albumin/Globulin Ratio 0.8 L (1-2) Lipase 83 (73-393) U/L Urine Color (Yellow) Urine Appearance (Clear) Urine pH (5.0-8.0) Ur Specific [place] (1.005-1.030) Urine Protein (Negative) Urine Glucose (UA) (Negative) Urine Ketones (Negative) Urine Occult Blood (Negative) Urine Nitrite (Negative) Urine Bilirubin (Negative) Urine Urobilinogen (0.2-1.0) Ur Leukocyte Esterase (Negative) Urine RBC (0-5) /hpf Urine WBC (0-5) /hpf Ur Squamous Epith Cells (0-5) /hpf Urine Bacteria (FEW) /hpf Urine Mucus (FEW) /hpf Ketones (0.0-0.3) mM SARS Virus RNA (PCR) (NEGATIVE) 05/07/20 05/07/20 05/07/20 Range/Units 07:20 07:20 07:20 WBC (3.98-10.04) K/mm3 RBC (3.98-5.22) M/mm3 Hgb (11.2-15.7) gm/dl Hct (34.1-44.9) % MCV (79.4-94.8) fl MCH (25.6-32.2) pg MCHC (32.2-35.5) g/dl RDW Std Deviation (36.4-46.3) fL Plt Count (182-369) K/mm3 MPV (9.4-12.3) fl Neut % (Auto) (34.0-71.1) % Lymph % (Auto) (19.3-51.7) % Fisher % (Auto) (4.7-12.5) % Eos % (Auto) (0.7-5.8) Baso % (Auto) (0.1-1.2) % Neut # (Auto) (1.56-6.13) K/mm3 Lymph # (Auto) (1.18-3.74) K/mm3 Fisher # (Auto) (0.24-0.36) K/mm3 Eos # (Auto) (0.04-0.36) K/mm3 Baso # (Auto) (0.01-0.08) K/mm3 D-Dimer, Quantitative (0.19-0.50) mg/L Sodium (136-145) mEq/L Potassium (3.5-5.1) mEq/L Chloride (98-107) mEq/L Carbon Dioxide (21-32) mEq/L Anion Gap (5-15) BUN (7-18) mg/dL Creatinine (0.55-1.02) mg/dL Est Cr Clr Drug Dosing mL/min Estimated GFR (MDRD) (>60) mL/min BUN/Creatinine Ratio (14-18) Glucose (74-106) mg/dL Lactic Acid (0.4-2.0) mmol/L Calcium (8.5-10.1) mg/dL Ferritin 207 (8-252) ng/ml Total Bilirubin (0.2-1.0) mg/dL AST (15-37) U/L ALT (14-59) U/L Alkaline Phosphatase (46-116) U/L Lactate Dehydrogenase (81-234) U/L Troponin I < 0.017 (0.00-0.056) ng/mL C-Reactive Protein (<1.0) mg/dL Total Protein (6.4-8.2) g/dl Albumin (3.4-5.0) g/dl Globulin gm/dL Albumin/Globulin Ratio (1-2) Lipase (73-393) U/L Urine Color (Yellow) Urine Appearance (Clear) Urine pH (5.0-8.0) Ur Specific [place] (1.005-1.030) Urine Protein (Negative) Urine Glucose (UA) (Negative) Urine Ketones (Negative) Urine Occult Blood (Negative) Urine Nitrite (Negative) Urine Bilirubin (Negative) Urine Urobilinogen (0.2-1.0) Ur Leukocyte Esterase (Negative) Urine RBC (0-5) /hpf Urine WBC (0-5) /hpf Ur Squamous Epith Cells (0-5) /hpf Urine Bacteria (FEW) /hpf Urine Mucus (FEW) /hpf Ketones 0.19 (0.0-0.3) mM SARS Virus RNA (PCR) (NEGATIVE) 05/07/20 05/07/2020 Range/Units 07:34 08:35 11:10 WBC (3.98-10.04) K/mm3 RBC (3.98-5.22) M/mm3 Hgb (11.2-15.7) gm/dl Hct (34.1-44.9) % MCV (79.4-94.8) fl MCH (25.6-32.2) pg MCHC (32.2-35.5) g/dl RDW Std Deviation (36.4-46.3) fL Plt Count (182-369) K/mm3 MPV (9.4-12.3) fl Neut % (Auto) (34.0-71.1) % Lymph % (Auto) (19.3-51.7) % Fisher % (Auto) (4.7-12.5) % Eos % (Auto) (0.7-5.8) Baso % (Auto) (0.1-1.2) % Neut # (Auto) (1.56-6.13) K/mm3 Lymph # (Auto) (1.18-3.74) K/mm3 Fisher # (Auto) (0.24-0.36) K/mm3 Eos # (Auto) (0.04-0.36) K/mm3 Baso # (Auto) (0.01-0.08) K/mm3 D-Dimer, Quantitative (0.19-0.50) mg/L Sodium (136-145) mEq/L Potassium (3.5-5.1) mEq/L Chloride (98-107) mEq/L Carbon Dioxide (21-32) mEq/L Anion Gap (5-15) BUN (7-18) mg/dL Creatinine (0.55-1.02) mg/dL Est Cr Clr Drug Dosing mL/min Estimated GFR (MDRD) (>60) mL/min BUN/Creatinine Ratio (14-18) Glucose (74-106) mg/dL Lactic Acid 0.9 (0.4-2.0) mmol/L Calcium (8.5-10.1) mg/dL Ferritin (8-252) ng/ml Total Bilirubin (0.2-1.0) mg/dL AST (15-37) U/L ALT (14-59) U/L Alkaline Phosphatase (46-116) U/L Lactate Dehydrogenase (81-234) U/L Troponin I (0.00-0.056) ng/mL C-Reactive Protein (<1.0) mg/dL Total Protein (6.4-8.2) g/dl Albumin (3.4-5.0) g/dl Globulin gm/dL Albumin/Globulin Ratio (1-2) Lipase (73-393) U/L Urine Color Yellow (Yellow) Urine Appearance Clear (Clear) Urine pH 6.0 (5.0-8.0) Ur Specific [place] > or = 1.030 (1.005-1.030) Urine Protein 2+ H (Negative) Urine Glucose (UA) Negative (Negative) Urine Ketones 2+ H (Negative) Urine Occult Blood Negative (Negative) Urine Nitrite Negative (Negative) Urine Bilirubin Negative (Negative) Urine Urobilinogen 1.0 (0.2-1.0) Ur Leukocyte Esterase Negative (Negative) Urine RBC 0-5 (0-5) /hpf Urine WBC 0-5 (0-5) /hpf Ur Squamous Epith Cells 0-5 (0-5) /hpf Urine Bacteria Few (FEW) /hpf Urine Mucus Few (FEW) /hpf Ketones (0.0-0.3) mM SARS Virus RNA (PCR) Positive H (NEGATIVE) Result Diagrams: 05/07/20 07:20 05/07/20 07:20 Sepsis Event Note - Evaluation Sepsis Screening Result: No Definite Risk - Focused Exam Vital Signs: Vital Signs Temp Temp Pulse Pulse Resp BP BP 05/07/20 10:40 98.4 F 95 18 117/72 05/07/20 10:38 73 118/72 05/07/20 10:00 80 113/65 05/07/20 06:47 97.8 F 97 17 97/85 Pulse Ox 05/07/20 10:40 100 05/07/20 10:38 100 05/07/20 10:00 100 05/07/20 06:47 99 - Problem List (1) COVID-19 SNOMED Code(s): 365072955 ICD Code: U07.1 - COVID-19 Status: Acute Current Visit: Yes (2) Flank pain, acute SNOMED Code(s): 785560982, 084644337 ICD Code: R10.9 - UNSPECIFIED ABDOMINAL PAIN Status: Acute Current Visit: Yes (3) Pneumonia SNOMED Code(s): 018055475 ICD Code: J18.9 - PNEUMONIA, UNSPECIFIED ORGANISM Status: Acute Current Visit: Yes Qualifiers: Laterality: left Lung location: lower lobe of lung Problem List Initiated/Reviewed/Updated: Yes Orders Last 24hrs: Active Orders 24 hr Category Date Time Status Admission Status [Patient Status] [ADT] Routine ADT 05/07/20 09:31 Active Patient Status [ADT] Stat ADT 05/07/20 13:27 Ordered EKG Documentation Completion [RC] STAT Care 05/07/20 08:14 Active Head of Bed Elevation [RC] ASDIRECTED Care 05/07/20 13:27 Ordered Height and Weight [RC] DAILY Care 05/07/20 13:27 Ordered Notify Provider Vital Signs [RC] ASDIRECTED Care 05/07/20 13:27 Ordered Notify Provider [RC] PRN Care 05/07/20 13:27 Ordered Oxygen Therapy [RC] ASDIRECTED Care 05/07/20 13:27 Ordered Up to Chair [RC] ASDIRECTED Care 05/07/20 13:27 Ordered Vital Signs [RC] PER UNIT ROUTINE Care 05/07/20 13:27 Ordered Full Liquid Diet [DIET] Diet 05/07/20 Dinner Ordered Regular Diet [DIET] Diet 05/07/20 Dinner Active BASIC METABOLIC PANEL,BMP [CHEM] AM Lab 05/08/20 05:11 Ordered C-REACTIVE PROTEIN [CHEM] AM Lab 05/08/20 05:11 Ordered C-REACTIVE PROTEIN [CHEM] AM Lab 05/09/20 05:11 Ordered C-REACTIVE PROTEIN [CHEM] AM Lab 05/10/20 05:11 Ordered CBC WITH AUTO DIFF [HEME] AM Lab 05/08/20 05:11 Ordered D-DIMER QUANTITATIVE [COAG] AM Lab 05/08/20 05:11 Ordered D-DIMER QUANTITATIVE [COAG] AM Lab 05/09/20 05:11 Ordered D-DIMER QUANTITATIVE [COAG] AM Lab 05/10/20 05:11 Ordered INFLUENZA A+B AG SCREEN [RM] Routine Lab 05/07/20 13:32 Ordered PROCALCITONIN [REF] Routine Lab 05/07/20 13:24 Ordered VITAMIN D,25-HYDROXY [CHEM] Routine Lab 05/08/20 05:11 Ordered Acetaminophen [Tylenol] Med 05/07/20 13:27 Ordered 650 mg PO Q6H PRN Acetaminophen/HYDROcodone [[place] 325-5 MG] Med 05/07/20 13:27 Ordered 1 tab PO Q6H PRN Aspirin [Halfprin] Med 05/08/20 09:00 Ordered 81 mg PO DAILY Docusate Sodium/Sennosides [Senna Plus] Med 05/07/20 21:00 Ordered 2 tab PO BEDTIME Enoxaparin [Lovenox] Med 05/08/20 09:00 Ordered 40 mg SUBCUT DAILY Morphine Med 05/07/20 13:27 Ordered 2 mg IVPUSH Q4H PRN Ondansetron [Zofran] Med 05/07/20 11:21 Active 4 mg IVPUSH Q4H PRN Pantoprazole [ProTONIX] Med 05/07/20 18:00 Ordered 40 mg PO QPM Sodium Chloride 0.9% [Normal Saline] 1,000 ml Med 05/07/20 07:15 Active IV ASDIRECTED Sodium Chloride 0.9% [Normal Saline] 1,000 ml Med 05/07/20 13:30 Ordered IV ASDIRECTED cefTRIAXone [Rocephin] 2 gm Med 05/07/20 08:15 Active Sodium Chloride 0.9% [Normal Saline] 100 ml IV Q24H Blood Culture x2 Reflex Set [OM.PC] Stat Oth 05/07/20 08:05 Ordered Isolation [COMM] Routine Oth 05/07/20 13:35 Ordered Resuscitation Status Stat Resus Stat 05/07/20 13:27 Ordered Medication Orders Acetaminophen (Tylenol) 650 mg PO Q6H PRN PRN Reason: Pain (Mild 1-3) or Fever Hydrocodone Bitart/Acetaminophen ([place] 325-5 Mg) 1 tab PO Q6H PRN PRN Reason: Pain (moderate 4-6) Aspirin (Halfprin) 81 mg PO DAILY [facility] Enoxaparin Sodium (Lovenox) 40 mg SUBCUT DAILY [facility] Sodium Chloride (Normal Saline) 1,000 mls @ 500 mls/hr IV ASDIRECTED ROGER Last Admin: 05/07/20 07:16 Dose: 150 mls/hr Documented by: KATHERINE Ceftriaxone Sodium 2 gm/ (Sodium Chloride) 100 mls @ 200 mls/hr IV Q24H [facility] Last Admin: 05/07/20 09:05 Dose: 200 mls/hr Documented by: KATHERINE Sodium Chloride (Normal Saline) 1,000 mls @ 30 mls/hr IV ASDIRECTED [facility] Morphine Sulfate (Morphine) 2 mg IVPUSH Q4H PRN PRN Reason: Pain (severe 7-10) Ondansetron HCl (Zofran) 4 mg IVPUSH Q4H PRN PRN Reason: Nausea/Vomiting Last Admin: 05/07/20 11:49 Dose: 4 mg Documented by: BEE Pantoprazole Sodium (Protonix) 40 mg PO QPM [facility] Senna/Docusate Sodium (Senna Plus) 2 tab PO BEDTIME [facility] Assessment/Plan Comment:: Acute viral pneumonia secondary to COVID-19: Patient presents with shortness of breath, occasional fevers and chills at home. At the same time reports shortness of breath made worse with exertion. CT scan concerning for left lobe pneumonia. Noted with marginally elevated CRP of 2.0, d-dimer normal at 0.37. COVID-19 test positive. Placed patient on contact precautions, check influenza,check Vit-min D repeat, CRP and d-dimer daily, keep patient on continuous pulse oximetry. Given increased risk of coagulopathy due to COVID pneumonia, keep patient on aspirin 81 mg p.o. daily. Breathing treatments. 2 g Rocephin and Zithromax daily for bacterial pneumonia/complication from acute viral syndrome. If patient CRP increased tomorrow, will consider starting the patient on dexamethasone. In case of shortness of breath, patient will be on Dulera 2 puffs twice daily, Ventolin 4 hours as needed shortness of breath. Nausea and vomiting: This could be complication from COVID-[address] s can concerning for multiple gallstones but lipase and liver enzymes for now within normal limits. We will keep the patient on Zofran 4 mg every 4 hours PRN nausea, if patient keeps having persistent nausea, will recommend right upper quadrant ultrasound. In the meantime keep patient on clear liquids. Dehydration: Patient appears slightly dehydrated, patient will receive normal saline 500 mm bolus while in the ER. Given patient's diagnosis of COVID-19 pneumonia with tendency for fluid overload, will keep the patient on gentle hydration with NS at rate of 50 mL/h total of 2 L. Monitor and replace electrolytes. Prophylaxis: Tonics 40 mg p.o. every afternoon. DVT prophylaxis: Given patient's diagnosis of COVID pneumonia, patient will be on Lovenox 40 mg subcu every 24 given d-dimer is in normal limits. But if elevated, will recommend starting Lovenox 1 mg/kg every 24. Pain/fever: Acetaminophen 650 mg/mL pain/fever, Lortab 5/325 1 tablet p.o. a moderate pain, morphine 2 mg every 4 hours as needed severe pain. Status: Full code. Disposition patient will be admitted for work-up and management as above. Gentle hydration monitor replace electrolytes breathing treatment, consevative management for COVID-pneumonia. - Mortality Measure Prognosis:: Good <En Verma III - Last Filed: 05/07/20 17:38> H&P History of Present Illness - General Admit Problem/Dx: Admission Diagnosis/Problem Admission Diagnosis/Problem Viral pneumonia Exam - Vital Signs Vital Signs: Last Vital Signs Temp 99.0 F 05/07/20 15:55 Pulse 102 H 05/07/20 15:55 Resp 18 05/07/20 15:55 BP 106/66 05/07/20 15:55 Pulse Ox 100 05/07/20 15:55 - Patient Data Lab Results Last 24 hrs: Laboratory Results - last 24 hr 05/07/20 05/07/20 05/07/20 Range/Units 07:20 07:20 07:20 WBC 5.39 (3.98-10.04) K/mm3 RBC 4.56 (3.98-5.22) M/mm3 Hgb 13.5 (11.2-15.7) gm/dl Hct 41.6 (34.1-44.9) % MCV 91.2 (79.4-94.8) fl MCH 29.6 (25.6-32.2) pg MCHC 32.5 (32.2-35.5) g/dl RDW Std Deviation 42.7 (36.4-46.3) fL Plt Count 333 (182-369) K/mm3 MPV 9.8 (9.4-12.3) fl Neut % (Auto) 59.2 (34.0-71.1) % Lymph % (Auto) 33.8 (19.3-51.7) % Fisher % (Auto) 5.8 (4.7-12.5) % Eos % (Auto) 0.4 L (0.7-5.8) Baso % (Auto) 0.6 (0.1-1.2) % Neut # (Auto) 3.20 (1.56-6.13) K/mm3 Lymph # (Auto) 1.82 (1.18-3.74) K/mm3 Fisher # (Auto) 0.31 (0.24-0.36) K/mm3 Eos # (Auto) 0.02 L (0.04-0.36) K/mm3 Baso # (Auto) 0.03 (0.01-0.08) K/mm3 D-Dimer, Quantitative 0.37 (0.19-0.50) mg/L Sodium 137 (136-145) mEq/L Potassium 4.0 (3.5-5.1) mEq/L Chloride 103 (98-107) mEq/L Carbon Dioxide 25 (21-32) mEq/L Anion Gap 13.0 (5-15) BUN 9 (7-18) mg/dL Creatinine 1.1 H (0.55-1.02) mg/dL Est Cr Clr Drug Dosing 74.60 mL/min Estimated GFR (MDRD) > 60 (>60) mL/min BUN/Creatinine Ratio 8.2 L (14-18) Glucose 91 (74-106) mg/dL Lactic Acid (0.4-2.0) mmol/L Calcium 8.5 (8.5-10.1) mg/dL Ferritin (8-252) ng/ml Total Bilirubin 0.3 (0.2-1.0) mg/dL AST 22 (15-37) U/L ALT 25 (14-59) U/L Alkaline Phosphatase 57 (46-116) U/L Lactate Dehydrogenase 221 (81-234) U/L Troponin I (0.00-0.056) ng/mL C-Reactive Protein 2.0 H* (<1.0) mg/dL Total Protein 7.7 (6.4-8.2) g/dl Albumin 3.3 L (3.4-5.0) g/dl Globulin 4.4 gm/dL Albumin/Globulin Ratio 0.8 L (1-2) Lipase 83 (73-393) U/L Urine Color (Yellow) Urine Appearance (Clear) Urine pH (5.0-8.0) Ur Specific [place] (1.005-1.030) Urine Protein (Negative) Urine Glucose (UA) (Negative) Urine Ketones (Negative) Urine Occult Blood (Negative) Urine Nitrite (Negative) Urine Bilirubin (Negative) Urine Urobilinogen (0.2-1.0) Ur Leukocyte Esterase (Negative) Urine RBC (0-5) /hpf Urine WBC (0-5) /hpf Ur Squamous Epith Cells (0-5) /hpf Urine Bacteria (FEW) /hpf Urine Mucus (FEW) /hpf Ketones (0.0-0.3) mM SARS Virus RNA (PCR) (NEGATIVE) 05/07/20 05/07/20 05/07/20 Range/Units 07:20 07:20 07:20 WBC (3.98-10.04) K/mm3 RBC (3.98-5.22) M/mm3 Hgb (11.2-15.7) gm/dl Hct (34.1-44.9) % MCV (79.4-94.8) fl MCH (25.6-32.2) pg MCHC (32.2-35.5) g/dl RDW Std Deviation (36.4-46.3) fL Plt Count (182-369) K/mm3 MPV (9.4-12.3) fl Neut % (Auto) (34.0-71.1) % Lymph % (Auto) (19.3-51.7) % Fisher % (Auto) (4.7-12.5) % Eos % (Auto) (0.7-5.8) Baso % (Auto) (0.1-1.2) % Neut # (Auto) (1.56-6.13) K/mm3 Lymph # (Auto) (1.18-3.74) K/mm3 Fisher # (Auto) (0.24-0.36) K/mm3 Eos # (Auto) (0.04-0.36) K/mm3 Baso # (Auto) (0.01-0.08) K/mm3 D-Dimer, Quantitative (0.19-0.50) mg/L Sodium (136-145) mEq/L Potassium (3.5-5.1) mEq/L Chloride (98-107) mEq/L Carbon Dioxide (21-32) mEq/L Anion Gap (5-15) BUN (7-18) mg/dL Creatinine (0.55-1.02) mg/dL Est Cr Clr Drug Dosing mL/min Estimated GFR (MDRD) (>60) mL/min BUN/Creatinine Ratio (14-18) Glucose (74-106) mg/dL Lactic Acid (0.4-2.0) mmol/L Calcium (8.5-10.1) mg/dL Ferritin 207 (8-252) ng/ml Total Bilirubin (0.2-1.0) mg/dL AST (15-37) U/L ALT (14-59) U/L Alkaline Phosphatase (46-116) U/L Lactate Dehydrogenase (81-234) U/L Troponin I < 0.017 (0.00-0.056) ng/mL C-Reactive Protein (<1.0) mg/dL Total Protein (6.4-8.2) g/dl Albumin (3.4-5.0) g/dl Globulin gm/dL Albumin/Globulin Ratio (1-2) Lipase (73-393) U/L Urine Color (Yellow) Urine Appearance (Clear) Urine pH (5.0-8.0) Ur Specific [place] (1.005-1.030) Urine Protein (Negative) Urine Glucose (UA) (Negative) Urine Ketones (Negative) Urine Occult Blood (Negative) Urine Nitrite (Negative) Urine Bilirubin (Negative) Urine Urobilinogen (0.2-1.0) Ur Leukocyte Esterase (Negative) Urine RBC (0-5) /hpf Urine WBC (0-5) /hpf Ur Squamous Epith Cells (0-5) /hpf Urine Bacteria (FEW) /hpf Urine Mucus (FEW) /hpf Ketones 0.19 (0.0-0.3) mM SARS Virus RNA (PCR) (NEGATIVE) 05/07/20 05/07/20 05/07/20 Range/Units 07:34 08:35 11:10 WBC (3.98-10.04) K/mm3 RBC (3.98-5.22) M/mm3 Hgb (11.2-15.7) gm/dl Hct (34.1-44.9) % MCV (79.4-94.8) fl MCH (25.6-32.2) pg MCHC (32.2-35.5) g/dl RDW Std Deviation (36.4-46.3) fL Plt Count (182-369) K/mm3 MPV (9.4-12.3) fl Neut % (Auto) (34.0-71.1) % Lymph % (Auto) (19.3-51.7) % Fisher % (Auto) (4.7-12.5) % Eos % (Auto) (0.7-5.8) Baso % (Auto) (0.1-1.2) % Neut # (Auto) (1.56-6.13) K/mm3 Lymph # (Auto) (1.18-3.74) K/mm3 Fisher # (Auto) (0.24-0.36) K/mm3 Eos # (Auto) (0.04-0.36) K/mm3 Baso # (Auto) (0.01-0.08) K/mm3 D-Dimer, Quantitative (0.19-0.50) mg/L Sodium (136-145) mEq/L Potassium (3.5-5.1) mEq/L Chloride (98-107) mEq/L Carbon Dioxide (21-32) mEq/L Anion Gap (5-15) BUN (7-18) mg/dL Creatinine (0.55-1.02) mg/dL Est Cr Clr Drug Dosing mL/min Estimated GFR (MDRD) (>60) mL/min BUN/Creatinine Ratio (14-18) Glucose (74-106) mg/dL Lactic Acid 0.9 (0.4-2.0) mmol/L Calcium (8.5-10.1) mg/dL Ferritin (8-252) ng/ml Total Bilirubin (0.2-1.0) mg/dL AST (15-37) U/L ALT (14-59) U/L Alkaline Phosphatase (46-116) U/L Lactate Dehydrogenase (81-234) U/L Troponin I (0.00-0.056) ng/mL C-Reactive Protein (<1.0) mg/dL Total Protein (6.4-8.2) g/dl Albumin (3.4-5.0) g/dl Globulin gm/dL Albumin/Globulin Ratio (1-2) Lipase (73-393) U/L Urine Color Yellow (Yellow) Urine Appearance Clear (Clear) Urine pH 6.0 (5.0-8.0) Ur Specific [place] > or = 1.030 (1.005-1.030) Urine Protein 2+ H (Negative) Urine Glucose (UA) Negative (Negative) Urine Ketones 2+ H (Negative) Urine Occult Blood Negative (Negative) Urine Nitrite Negative (Negative) Urine Bilirubin Negative (Negative) Urine Urobilinogen 1.0 (0.2-1.0) Ur Leukocyte Esterase Negative (Negative) Urine RBC 0-5 (0-5) /hpf Urine WBC 0-5 (0-5) /hpf Ur Squamous Epith Cells 0-5 (0-5) /hpf Urine Bacteria Few (FEW) /hpf Urine Mucus Few (FEW) /hpf Ketones (0.0-0.3) mM SARS Virus RNA (PCR) Positive H (NEGATIVE) Result Diagrams: 05/07/20 07:20 05/07/20 07:20 Emanuel Results Last 24 hrs: Microbiology 05/07/20 14:20 Influenza Type A Antigen Screen - Final Nasopharyngeal Swab - Nare, Unspecified NEGATIVE INFLUENZA A VIRUS AG REFERENCE RANGE: NEGATIVE Influenza Type B Antigen Screen - Final NEGATIVE INFLUENZA B VIRUS AG REFERENCE RANGE: NEGATIVE Sepsis Event Note - Focused Exam Vital Signs: Vital Signs Temp Temp Pulse Pulse Resp BP BP 05/07/20 15:55 99.0 F 102 H 18 106/66 05/07/20 10:40 98.4 F 95 18 117/72 05/07/20 10:38 73 118/72 05/07/20 10:00 80 113/65 05/07/20 06:47 97.8 F 97 17 97/85 Pulse Ox 05/07/20 15:55 100 05/07/20 10:40 100 05/07/20 10:38 100 05/07/20 10:00 100 05/07/20 06:47 99 - Problem List (1) COVID-19 SNOMED Code(s): 459786987 ICD Code: U07.1 - COVID-19 Status: Acute Current Visit: Yes (2) Flank pain, acute SNOMED Code(s): 412591095, 254631315 ICD Code: R10.9 - UNSPECIFIED ABDOMINAL PAIN Status: Acute Current Visit: Yes (3) Pneumonia SNOMED Code(s): 250946741 ICD Code: J18.9 - PNEUMONIA, UNSPECIFIED ORGANISM Status: Acute Current Visit: Yes Qualifiers: Laterality: left Lung location: lower lobe of lung Problem List Initiated/Reviewed/Updated: Yes Orders Last 24hrs: Active Orders 24 hr Category Date Time Status Admission Status [Patient Status] [ADT] Routine ADT 05/07/20 09:31 Active Patient Status [ADT] Stat ADT 05/07/20 13:27 Active Head of Bed Elevation [RC] ASDIRECTED Care 05/07/20 13:27 Active Height and Weight [RC] 04 Care 05/07/20 13:27 Active Notify Provider Vital Signs [RC] ASDIRECTED Care 05/07/20 13:27 Active Notify Provider [RC] PRN Care 05/07/20 13:27 Active Oxygen Therapy [RC] ASDIRECTED Care 05/07/20 13:27 Active Up to Chair [RC] ASDIRECTED Care 05/07/20 13:27 Active Vital Signs [RC] Q4HR Care 05/07/20 13:27 Active Full Liquid Diet [DIET] Diet 05/07/20 Dinner Active BASIC METABOLIC PANEL,BMP [CHEM] AM Lab 05/08/20 05:11 Ordered C-REACTIVE PROTEIN [CHEM] AM Lab 05/08/20 05:11 Ordered C-REACTIVE PROTEIN [CHEM] AM Lab 05/09/20 05:11 Ordered C-REACTIVE PROTEIN [CHEM] AM Lab 05/10/20 05:11 Ordered CBC WITH AUTO DIFF [HEME] AM Lab 05/08/20 05:11 Ordered D-DIMER QUANTITATIVE [COAG] AM Lab 05/08/20 05:11 Ordered D-DIMER QUANTITATIVE [COAG] AM Lab 05/09/20 05:11 Ordered D-DIMER QUANTITATIVE [COAG] AM Lab 05/10/20 05:11 Ordered PROCALCITONIN [REF] Routine Lab 05/07/20 07:20 Received VITAMIN D,25-HYDROXY [CHEM] Routine Lab 05/08/20 05:11 Ordered Acetaminophen [Tylenol] Med 05/07/20 13:27 Active 650 mg PO Q6H PRN Acetaminophen/HYDROcodone [[place] 325-5 MG] Med 05/07/20 13:27 Active 1 tab PO Q6H PRN Albuterol [Proventil HFA] Med 05/07/20 14:10 Active 0 gm INH Q4H PRN Aspirin [Halfprin] Med 05/08/20 09:00 Active 81 mg PO DAILY Azithromycin [Zithromax] 500 mg Med 05/07/20 15:00 Active Sodium Chloride 0.9% [Normal Saline] 250 ml IV Q24H Docusate Sodium/Sennosides [Senna Plus] Med 05/07/20 21:00 Active 2 tab PO BEDTIME Enoxaparin [Lovenox] Med 05/08/20 09:00 Active 40 mg SUBCUT DAILY Ibuprofen [Motrin] Med 05/07/20 16:51 Active 600 mg PO Q6H PRN Mometasone/Formoterol [Dulera 100-5 MCG] Med 05/07/20 21:00 Active 2 puff IH BID Morphine Med 05/07/20 13:27 Active 2 mg IVPUSH Q4H PRN Ondansetron [Zofran] Med 05/07/20 11:21 Active 4 mg IVPUSH Q4H PRN Pantoprazole [ProTONIX] Med 05/07/20 18:00 Active 40 mg PO QPM Sodium Chloride 0.9% [Normal Saline] 1,000 ml Med 05/07/20 13:30 Active IV ASDIRECTED cefTRIAXone [Rocephin] 2 gm Med 05/07/20 08:15 Active Sodium Chloride 0.9% [Normal Saline] 100 ml IV Q24H Blood Culture x2 Reflex Set [OM.PC] Stat Oth 05/07/20 08:05 Ordered Isolation [COMM] Routine Oth 05/07/20 13:35 Ordered Pulse Oximetry Continuous Monitoring [OM.PC] Routine Oth 05/07/20 14:40 Active Resuscitation Status Stat Resus Stat 05/07/20 13:27 Ordered Medication Orders Acetaminophen (Tylenol) 650 mg PO Q6H PRN PRN Reason: Pain (Mild 1-3) or Fever Hydrocodone Bitart/Acetaminophen ([place] 325-5 Mg) 1 tab PO Q6H PRN PRN Reason: Pain (moderate 4-6) Last Admin: 05/07/20 16:11 Dose: 1 tab Documented by: BEE Albuterol (Proventil Hfa) 0 gm INH Q4H PRN PRN Reason: SHORTNESS OF BREATH Aspirin (Halfprin) 81 mg PO DAILY [facility] Enoxaparin Sodium (Lovenox) 40 mg SUBCUT DAILY [facility] Ceftriaxone Sodium 2 gm/ (Sodium Chloride) 100 mls @ 200 mls/hr IV Q24H [facility] Last Admin: 05/07/20 09:05 Dose: 200 mls/hr Documented by: KATHERINE Sodium Chloride (Normal Saline) 1,000 mls @ 30 mls/hr IV ASDIRECTED [facility] Azithromycin 500 mg/ Sodium (Chloride) 250 mls @ 250 mls/hr IV Q24H [facility] Last Admin: 05/07/20 15:35 Dose: 250 mls/hr Documented by: BEE Ibuprofen (Motrin) 600 mg PO Q6H PRN PRN Reason: Pain/Fever Mometasone Furoate/Formoterol Fumar (Dulera 100-5 Mcg) 2 puff IH BID [facility] Morphine Sulfate (Morphine) 2 mg IVPUSH Q4H PRN PRN Reason: Pain (severe 7-10) Ondansetron HCl (Zofran) 4 mg IVPUSH Q4H PRN PRN Reason: Nausea/Vomiting Last Admin: 05/07/20 16:08 Dose: 4 mg Documented by: Admin: 05/07/20 11:49 Dose: 4 mg Documented by: BEE Pantoprazole Sodium (Protonix) 40 mg PO QPM [facility] Senna/Docusate Sodium (Senna Plus) 2 tab PO BEDTIME [facility] Assessment/Plan Comment:: Exam was notable for significant discomfort and bilateral flanks, left lower lobe fine crackles, and discomfort with inspiration. Patient was seen, examined, and evaluated personally and I agree with the above findings, assessment, and plan. I will add ibuprofen 600 mg every 6 hours as needed for pain. - Mortality Measure Prognosis:: Good
[2020-05-07] MEDS ORDERED: Albuterol 6.7 GM Inhaler INH PRN (14:10)
[2020-05-07] MEDS: Azithromycin 500 MG in Sodium Chloride 0.9% 250 ML IV SCH (15:35)
[2020-05-07] MEDS: Acetaminophen/HYDROcodone 325-5 MG Tab PO PRN ×2 (16:11→22:02)
[2020-05-07] MEDS: Pantoprazole 40 MG Tab.CR PO SCH (18:10)
[2020-05-07] MEDS: Ibuprofen 600 MG Tab PO PRN (20:26)
[2020-05-07] MEDS ORDERED: Formoterol/Mometasone 100-5 MCG 8.8 GM Inhaler IH SCH (21:00)
[2020-05-07] MEDS: Sodium Chloride 0.9% 1,000 ML IV SCH (22:01)
[2020-05-08] MEDS: Acetaminophen/HYDROcodone 325-5 MG Tab PO PRN ×2 (05:46→23:01)
[2020-05-08] MEDS: Ibuprofen 600 MG Tab PO PRN (07:52)
[2020-05-08 08:29] LABS: VITAMIN D,25-HYDROXY 11.2 ng/ml (30.0-100.0)
[2020-05-08] MEDS ORDERED: Aspirin 81 MG Tab.EC PO SCH (09:00)
[2020-05-08] MEDS: Enoxaparin 40 MG/0.4 ML Syringe SUBCUT SCH (10:11)
[2020-05-08] MEDS: Ondansetron 4 MG/2 ML SDV IVPUSH PRN ×2 (10:12→15:37)
[2020-05-08] MEDS: cefTRIAXone 2 GM in Sodium Chloride 0.9% 100 ML IV SCH (10:12)
[2020-05-08] MEDS ORDERED: Lactulose Soln 10 GM/15 ML 30 ML UD Cup PO ONE (11:45)
--- NOTE | 2020-05-08 11:55 | PCM.PN ---
- General Info Date of Service: 05/08/20 Subjective Update: The patient was seen by me, case discussed with Dr. Verma. Today, the patient's pain is better controlled; however patient lets me know she has not had a BM for 6 days. Her LLQ is tender to palpation and distended. She did have nausea this AM but was relieved with Zofran. Patient no longer has nausea and actually feels a little hungry, requests diet to be advanced. She was able to eat liquids. She continues to feel warm and also have chills on and off. She does not feel short of breath any longer. The patient denies dizziness. She does feel weak. Her vitals today are stable. - Patient Data Vitals - Most Recent: Last Vital Signs Temp 98.2 F 05/08/20 03:22 Pulse 71 05/08/20 03:22 Resp 14 05/08/20 03:22 BP 96/56 L 05/08/20 03:22 Pulse Ox 97 05/08/20 03:22 Weight - Most Recent: 176 lb 3.2 oz I&O - Last 24 Hours: Intake & Output 05/07/20 05/08/20 05/08/20 22:59 06:59 14:59 Intake Total 703 1008 320 Output Total 950 1050 Balance -247 -42 320 Lab Results Last 24 Hours: Laboratory Results - last 24 hr 05/08/20 05/08/20 05/08/20 Range/Units 05:44 05:44 05:44 WBC 4.44 (3.98-10.04) K/mm3 RBC 4.05 (3.98-5.22) M/mm3 Hgb 11.8 D (11.2-15.7) gm/dl Hct 37.4 (34.1-44.9) % MCV 92.3 (79.4-94.8) fl MCH 29.1 (25.6-32.2) pg MCHC 31.6 L (32.2-35.5) g/dl RDW Std Deviation 44.0 (36.4-46.3) fL Plt Count 298 (182-369) K/mm3 MPV 10.2 (9.4-12.3) fl Neut % (Auto) 47.3 (34.0-71.1) % Lymph % (Auto) 40.5 (19.3-51.7) % Coles % (Auto) 10.6 (4.7-12.5) % Eos % (Auto) 0.5 L (0.7-5.8) Baso % (Auto) 0.9 (0.1-1.2) % Neut # (Auto) 2.10 (1.56-6.13) K/mm3 Lymph # (Auto) 1.80 (1.18-3.74) K/mm3 Coles # (Auto) 0.47 H (0.24-0.36) K/mm3 Eos # (Auto) 0.02 L (0.04-0.36) K/mm3 Baso # (Auto) 0.04 (0.01-0.08) K/mm3 Manual Slide Review Normal smear D-Dimer, Quantitative 0.28 (0.19-0.50) mg/L Sodium 139 (136-145) mEq/L Potassium 4.1 (3.5-5.1) mEq/L Chloride 103 (98-107) mEq/L Carbon Dioxide 28 (21-32) mEq/L Anion Gap 12.1 (5-15) BUN 7 (7-18) mg/dL Creatinine 1.1 H (0.55-1.02) mg/dL Est Cr Clr Drug Dosing 74.60 mL/min Estimated GFR (MDRD) > 60 (>60) mL/min BUN/Creatinine Ratio 6.4 L (14-18) Glucose 82 (74-106) mg/dL Calcium 8.6 (8.5-10.1) mg/dL Phosphorus 3.8 (2.6-4.7) mg/dL C-Reactive Protein 4.3 H* (<1.0) mg/dL Vitamin D 25-Hydroxy 11.2 L (30.0-100.0) ng/ml Emanuel Results Last 24 Hours: Microbiology 05/07/20 14:20 Influenza Type A Antigen Screen - Final Nasopharyngeal Swab - Nare, Unspecified NEGATIVE INFLUENZA A VIRUS AG REFERENCE RANGE: NEGATIVE Influenza Type B Antigen Screen - Final NEGATIVE INFLUENZA B VIRUS AG REFERENCE RANGE: NEGATIVE Med Orders - Current: Current Medications Acetaminophen (Tylenol) 650 mg PO Q6H PRN PRN Reason: Pain (Mild 1-3) or Fever Hydrocodone Bitart/Acetaminophen ([place] 325-5 Mg) 1 tab PO Q6H PRN PRN Reason: Pain (moderate 4-6) Last Admin: 05/08/20 05:46 Dose: 1 tab Documented by: Albuterol (Proventil Hfa) 0 gm INH Q4H PRN PRN Reason: SHORTNESS OF BREATH Bisacodyl (Dulcolax) 10 mg RECTAL ONETIME ONE Stop: 05/08/20 13:01 Cholecalciferol (Vitamin D3) 5,000 unit PO DAILY [facility] Enoxaparin Sodium (Lovenox) 40 mg SUBCUT DAILY [facility] Last Admin: 05/08/20 10:11 Dose: 40 mg Documented by: Ceftriaxone Sodium 2 gm/ (Sodium Chloride) 100 mls @ 200 mls/hr IV Q24H [facility] Last Admin: 05/08/20 10:12 Dose: 200 mls/hr Documented by: Sodium Chloride (Normal Saline) 1,000 mls @ 30 mls/hr IV ASDIRECTED [facility] Last Admin: 05/07/20 22:01 Dose: 30 mls/hr Documented by: Azithromycin 500 mg/ Sodium (Chloride) 250 mls @ 250 mls/hr IV Q24H [facility] Last Admin: 05/07/20 15:35 Dose: 250 mls/hr Documented by: Ibuprofen (Motrin) 600 mg PO Q6H PRN PRN Reason: Pain/Fever Last Admin: 05/08/20 07:52 Dose: 600 mg Documented by: Morphine Sulfate (Morphine) 2 mg IVPUSH Q4H PRN PRN Reason: Pain (severe 7-10) Ondansetron HCl (Zofran) 4 mg IVPUSH Q4H PRN PRN Reason: Nausea/Vomiting Last Admin: 05/08/20 10:12 Dose: 4 mg Documented by: Pantoprazole Sodium (Protonix) 40 mg PO QPM [facility] Last Admin: 05/07/20 18:10 Dose: 40 mg Documented by: Senna/Docusate Sodium (Senna Plus) 2 tab PO BEDTIME [facility] Last Admin: 05/07/20 20:26 Dose: 2 tab Documented by: Discontinued Medications Aspirin (Halfprin) 81 mg PO DAILY [facility] Last Admin: 05/08/20 11:04 Dose: Not Given Documented by: Hydromorphone HCl (Dilaudid) 1 mg IVPUSH ONETIME ONE Stop: 05/07/20 07:19 Last Admin: 05/07/20 07:31 Dose: 1 mg Documented by: Hydromorphone HCl (Dilaudid) 1 mg IVPUSH Q2H PRN PRN Reason: Pain Last Admin: 05/07/20 11:49 Dose: 1 mg Documented by: Sodium Chloride (Normal Saline) 1,000 mls @ 500 mls/hr IV ASDIRECTED [facility] Last Admin: 05/07/20 07:16 Dose: 150 mls/hr Documented by: Lactulose (Cephulac) 20 gm PO ONETIME ONE Stop: 05/08/20 11:46 Metoclopramide HCl (Reglan) 7.5 mg IVPUSH ONETIME ONE Stop: 05/07/20 07:03 Last Admin: 05/07/20 07:16 Dose: 7.5 mg Documented by: Mometasone Furoate/Formoterol Fumar (Dulera 100-5 Mcg) 2 puff IH BID [facility] Last Admin: 05/07/20 20:16 Dose: 2 puff Documented by: - Exam General: Alert, Oriented, Cooperative HEENT: Pupils Equal, Pupils Reactive, EOMI Neck: Supple Lungs: Clear to Auscultation, Normal Respiratory Effort. No: Rales, Wheezing Cardiovascular: Regular Rate, Regular Rhythm GI/Abdominal Exam: Other (Hypoactive bowel sounds. Tender to light palpation LLQ. No tender to percussion. Dull to percussion LLQ. Abdomen slightly distended. ) Extremities: Normal Inspection, Normal Range of Motion, Non-Tender, No Pedal Edema, Normal Capillary Refill Peripheral Pulses: 2+: Posterior Tibial (L), Posterior Tibial (R) Skin: Warm, Dry, Intact Sepsis Event Note - Evaluation Sepsis Screening Result: No Definite Risk - Focused Exam Vital Signs: Vital Signs Temp Pulse Resp BP Pulse Ox 05/08/20 03:22 98.2 F 71 14 96/56 L 97 - Problem List & Annotations (1) Constipation SNOMED Code(s): 25237805 Code(s): K59.00 - CONSTIPATION, UNSPECIFIED Status: Acute Current Visit: Yes (2) Pneumonia SNOMED Code(s): 317730115 Code(s): J18.9 - PNEUMONIA, UNSPECIFIED ORGANISM Status: Acute Current Visit: Yes Qualifiers: Laterality: left Lung location: lower lobe of lung - Problem List Review Problem List Initiated/Reviewed/Updated: Yes - My Orders Last 24 Hours: My Active Orders 05/08/20 13:00 bisacodyL [Dulcolax] 10 mg RECTAL ONETIME ONE 05/08/20 15:00 Cholecalciferol (Vitamin D3) [Vitamin D3] 5,000 unit PO DAILY - Plan Plan:: Acute viral pneumonia secondary to COVID 19 -Patient came to ER with shortness of breath, fevers and chills at home. -COVID 19 swab positive. -Pt started on lovenox 40mg IV q24h as d-dimer normal but patient in hypercoagulable state due to COVID 19 infection. No need for full dose lovenox -Continue Rocephin 2g IV q24h and Zithromax daily for secondary bacterial infection. -Respiratory droplet precautions. -Starting vitamin D3 supplementation as her levels came back low. -If CRP increases or patient requires oxygen, will start dexamethasone. If CRP increases >8 and patient requires O2, we will reserve to use tocilizumab at that time. -CXR in AM to make sure no complication of COVID with pleural effusion or parapneumonic effusion. Nausea and vomiting. -May be complication from COVID-19 vs gallbladder disease vs constipation -Pt will have constipation relieved as described below. -Pt was found with gallstones on CT but LFTs normal, lipase normal, patient today is without RUQ pain. Nausea is subsiding. If patient has increased nausea or vomiting again or if developing pain, will get RUQ ultrasound. -Zofran 4mg IV q4h as needed for nausea. -Advancing diet to bland and will see how patient tolerates. Constipation. -She reports no BM for >5 days. -Since nausea has subsided, giving lactulose 20g x1 and dulcolax suppository. -If pt becomes nauseous again, patient will not receive oral therapies and will receive enema. Dehydration. -Improving. -Continue IV fluids but decrease to 30ml/hr. The patient has COVID and has received 2L of fluids. We are afraid patient can become fluid overload very fast due to COVID pneumonia. We will watch respiratory status closely. DVT prophylaxis. Lovenox 40mg IV q24h as d-dimer normal but patient in hypercoagulable state due to COVID 19 infection. No need for full dose lovenox GI prophylaxis: -Protonix 40mg oral every afternoon. Pain/fever: Tylenol 650 mg q6h for pain or fever, ibuprofen 600mg oral q6h for mild pain, lortab 5/325 q6h for moderate pain, morphine 2mg IV q4h as needed for severe pain. Disposition: If patient's nausea continues to improve with advancement of diet and relief of constipation. If CRP does not increase and no supplemental O2 needed, patient will be discharged tomorrow. CXR in AM to make sure no complication of COVID with pleural effusion or parapneumonic effusion.
[2020-05-08] MEDS ORDERED: Bisacodyl 10 MG Supp RECTAL ONE (13:00)
[2020-05-08] MEDS: Azithromycin 500 MG in Sodium Chloride 0.9% 250 ML IV SCH (15:15)
[2020-05-08] MEDS: Cholecalciferol (Vitamin D3) 5,000 UNIT Tab PO SCH (15:16)
[2020-05-08] MEDS ORDERED: Promethazine 12.5 MG in Sodium Chloride 0.9% 50 ML IV PRN (17:26)
[2020-05-08] MEDS: Ketorolac 30 MG/ML SDV IVPUSH PRN (18:19)
[2020-05-08] MEDS: Pantoprazole 40 MG Tab.CR PO SCH (18:21)
[2020-05-09] MEDS: Ketorolac 30 MG/ML SDV IVPUSH PRN (05:38)
[2020-05-09] MEDS: Sodium Chloride 0.9% 1,000 ML IV SCH (05:47)
[2020-05-09] MEDS: cefTRIAXone 2 GM in Sodium Chloride 0.9% 100 ML IV SCH (08:10)
[2020-05-09] MEDS: Cholecalciferol (Vitamin D3) 5,000 UNIT Tab PO SCH (08:13)
[2020-05-09] MEDS: Enoxaparin 40 MG/0.4 ML Syringe SUBCUT SCH (08:22)
--- NOTE | 2020-05-09 08:57 | US ---
Limited abdominal ultrasound: Multiple real-time images of the gallbladder were obtained. Comparison: Prior CT abdomen and pelvis study of 05/07/20. Findings: Several small gallstones as well as sludge are seen within the gallbladder. Gallbladder not optimally distended. No gallbladder wall thickening is appreciated. No biliary duct dilatation is appreciated. Impression: 1. Several small gallstones as well as sludge within the gallbladder. 2. Gallbladder not well distended but no findings to indicate gallbladder wall thickening are seen. No biliary duct dilatation is seen. Diagnostic code #2 This report was dictated in MDT
--- NOTE | 2020-05-09 10:20 | CR ---
Chest: Portable view of the chest was obtained. Comparison: Prior CT abdomen and pelvis exam showing the lung bases dated 05/07/20. Chest x-ray of 05/06/20 is also available. Increased density is noted within the left lung base. Findings have increased from chest x-ray. Lungs otherwise are clear. Heart size and mediastinum are normal. Bony structures are grossly intact. Impression: 1. Left lower lung pneumonia which has increased from previous studies. Diagnostic code #3 This report was dictated in MDT
[2020-05-09] MEDS: Magnesium Sulfate/Water 2 GM in Premix Bag 1 BAG IV SCH ×2 (11:11→13:28)
[2020-05-09] MEDS: Dexamethasone 4 MG/ML 5 ML MDV IV SCH (12:49)
[2020-05-09] MEDS: Ondansetron 4 MG/2 ML SDV IVPUSH PRN (13:08)
--- NOTE | 2020-05-09 14:02 | PCM.PN ---
- General Info Date of Service: 05/09/20 Subjective Update: The patient was seen by me at bedside, case discussed with Dr. Verma. The patient today was able to tolerate a bland breakfast and ate >75%. She continues to have left sided chest pain that is worse when rolling onto her left side or when taking deep breaths. She feels the Toradol does help. D-dimer remains low at 0.26. The patient no longer feels short of breath. She ate lunch and after lunch, patient began vomiting again. No abdominal pain. No diarrhea. Her vitals are stable. She continues to appear weary. CRP increased some today to 5.9 from 4.3. Chest x-ray shows worsening of Left lower lobe pneumonia. Gallbladder ultrasound shows small stones and biliary sludge but no dilation of bile ducts and no signs of inflamed gallbladder. Functional Status: Reports: Pain Controlled - Review of Systems General: Reports: Weakness. Denies: Fever, Chills HEENT: Reports: No Symptoms Pulmonary: Reports: Pleuritic Chest Pain. Denies: Cough, Sputum, Wheezing Cardiovascular: Denies: Palpitations, Dyspnea on Exertion, Orthopnea, Edema, Lightheadedness Gastrointestinal: Reports: Decreased Appetite, Nausea, Vomiting. Denies: Abdominal Pain, Diarrhea Skin: Reports: No Symptoms - Patient Data Vitals - Most Recent: Last Vital Signs Temp 98.2 F 05/09/20 08:05 Pulse 90 05/09/20 11:14 Resp 18 05/09/20 11:14 BP 96/61 05/09/20 11:14 Pulse Ox 95 05/09/20 11:14 Weight - Most Recent: 182 lb I&O - Last 24 Hours: Intake & Output 05/08/20 05/09/20 05/09/20 22:59 06:59 14:59 Intake Total 1771 595 Balance 1771 595 Lab Results Last 24 Hours: Laboratory Results - last 24 hr 05/07/20 05/09/20 05/09/20 Range/Units 07:20 06:55 06:55 WBC (3.98-10.04) K/mm3 RBC (3.98-5.22) M/mm3 Hgb (11.2-15.7) gm/dl Hct (34.1-44.9) % MCV (79.4-94.8) fl MCH (25.6-32.2) pg MCHC (32.2-35.5) g/dl RDW Std Deviation (36.4-46.3) fL Plt Count (182-369) K/mm3 MPV (9.4-12.3) fl Neut % (Auto) (34.0-71.1) % Lymph % (Auto) (19.3-51.7) % [place] % (Auto) (4.7-12.5) % Eos % (Auto) (0.7-5.8) Baso % (Auto) (0.1-1.2) % Neut # (Auto) (1.56-6.13) K/mm3 Lymph # (Auto) (1.18-3.74) K/mm3 [place] # (Auto) (0.24-0.36) K/mm3 Eos # (Auto) (0.04-0.36) K/mm3 Baso # (Auto) (0.01-0.08) K/mm3 Manual Slide Review D-Dimer, Quantitative 0.26 (0.19-0.50) mg/L Sodium 138 (136-145) mEq/L Potassium 3.6 (3.5-5.1) mEq/L Chloride 104 (98-107) mEq/L Carbon Dioxide 24 (21-32) mEq/L Anion Gap 13.6 (5-15) BUN 7 (7-18) mg/dL Creatinine 1.1 H (0.55-1.02) mg/dL Est Cr Clr Drug Dosing 74.60 mL/min Estimated GFR (MDRD) > 60 (>60) mL/min BUN/Creatinine Ratio 6.4 L (14-18) Glucose 84 (74-106) mg/dL Calcium 8.3 L (8.5-10.1) mg/dL Magnesium 1.7 L (1.8-2.4) mg/dl Total Bilirubin 0.3 (0.2-1.0) mg/dL AST 33 (15-37) U/L ALT 27 (14-59) U/L Alkaline Phosphatase 50 (46-116) U/L C-Reactive Protein 5.9 H* (<1.0) mg/dL Total Protein 6.8 (6.4-8.2) g/dl Albumin 2.8 L (3.4-5.0) g/dl Globulin 4.0 gm/dL Albumin/Globulin Ratio 0.7 L (1-2) Procalcitonin <0.05 (<0.10) ng/mL 05/09/20 Range/Units 06:55 WBC 4.37 (3.98-10.04) K/mm3 RBC 3.96 L (3.98-5.22) M/mm3 Hgb 11.6 (11.2-15.7) gm/dl Hct 36.1 (34.1-44.9) % MCV 91.2 (79.4-94.8) fl MCH 29.3 (25.6-32.2) pg MCHC 32.1 L (32.2-35.5) g/dl RDW Std Deviation 42.8 (36.4-46.3) fL Plt Count 297 (182-369) K/mm3 MPV 9.9 (9.4-12.3) fl Neut % (Auto) 62.7 (34.0-71.1) % Lymph % (Auto) 27.2 (19.3-51.7) % [place] % (Auto) 8.5 (4.7-12.5) % Eos % (Auto) 0.7 (0.7-5.8) Baso % (Auto) 0.7 (0.1-1.2) % Neut # (Auto) 2.74 (1.56-6.13) K/mm3 Lymph # (Auto) 1.19 (1.18-3.74) K/mm3 [place] # (Auto) 0.37 H (0.24-0.36) K/mm3 Eos # (Auto) 0.03 L (0.04-0.36) K/mm3 Baso # (Auto) 0.03 (0.01-0.08) K/mm3 Manual Slide Review Normal smear D-Dimer, Quantitative (0.19-0.50) mg/L Sodium (136-145) mEq/L Potassium (3.5-5.1) mEq/L Chloride (98-107) mEq/L Carbon Dioxide (21-32) mEq/L Anion Gap (5-15) BUN (7-18) mg/dL Creatinine (0.55-1.02) mg/dL Est Cr Clr Drug Dosing mL/min Estimated GFR (MDRD) (>60) mL/min BUN/Creatinine Ratio (14-18) Glucose (74-106) mg/dL Calcium (8.5-10.1) mg/dL Magnesium (1.8-2.4) mg/dl Total Bilirubin (0.2-1.0) mg/dL AST (15-37) U/L ALT (14-59) U/L Alkaline Phosphatase (46-116) U/L C-Reactive Protein (<1.0) mg/dL Total Protein (6.4-8.2) g/dl Albumin (3.4-5.0) g/dl Globulin gm/dL Albumin/Globulin Ratio (1-2) Procalcitonin (<0.10) ng/mL Med Orders - Current: Current Medications Acetaminophen (Tylenol) 650 mg PO Q6H PRN PRN Reason: Pain (Mild 1-3) or Fever Hydrocodone Bitart/Acetaminophen ([place] 325-5 Mg) 1 tab PO Q6H PRN PRN Reason: Pain (moderate 4-6) Last Admin: 05/08/20 23:01 Dose: 1 tab Documented by: Albuterol (Proventil Hfa) 0 gm INH Q4H PRN PRN Reason: SHORTNESS OF BREATH Cholecalciferol (Vitamin D3) 5,000 unit PO DAILY [facility] Last Admin: 05/09/20 08:13 Dose: 5,000 unit Documented by: Dexamethasone (Dexamethasone) 6 mg IV DAILY [facility] Last Admin: 05/09/20 12:49 Dose: 6 mg Documented by: Enoxaparin Sodium (Lovenox) 40 mg SUBCUT DAILY [facility] Last Admin: 05/09/20 08:22 Dose: 40 mg Documented by: Ceftriaxone Sodium 2 gm/ (Sodium Chloride) 100 mls @ 200 mls/hr IV Q24H [facility] Last Admin: 05/09/20 08:10 Dose: 200 mls/hr Documented by: Sodium Chloride (Normal Saline) 1,000 mls @ 30 mls/hr IV ASDIRECTED [facility] Last Admin: 05/09/20 05:47 Dose: 30 mls/hr Documented by: Azithromycin 500 mg/ Sodium (Chloride) 250 mls @ 250 mls/hr IV Q24H [facility] Last Admin: 05/08/20 15:15 Dose: 250 mls/hr Documented by: Promethazine HCl 12.5 mg/ (Sodium Chloride) 50.5 mls @ 100 mls/hr IV Q6H PRN PRN Reason: Nausea/Vomiting Last Admin: 05/08/20 18:20 Dose: 100 mls/hr Documented by: Ketorolac Tromethamine (Toradol) 30 mg IVPUSH Q8H PRN PRN Reason: pleuritic chest pain Last Admin: 05/09/20 05:38 Dose: 30 mg Documented by: Ondansetron HCl (Zofran) 4 mg IVPUSH Q4H PRN PRN Reason: Nausea/Vomiting Last Admin: 05/09/20 13:08 Dose: 4 mg Documented by: Pantoprazole Sodium (Protonix) 40 mg PO QPM [facility] Last Admin: 05/08/20 18:21 Dose: 40 mg Documented by: Senna/Docusate Sodium (Senna Plus) 2 tab PO BEDTIME [facility] Last Admin: 05/08/20 21:29 Dose: 2 tab Documented by: Discontinued Medications Aspirin (Halfprin) 81 mg PO DAILY [facility] Last Admin: 05/08/20 11:04 Dose: Not Given Documented by: Bisacodyl (Dulcolax) 10 mg RECTAL ONETIME ONE Stop: 05/08/20 13:01 Last Admin: 05/08/20 17:17 Dose: Not Given Documented by: Hydromorphone HCl (Dilaudid) 1 mg IVPUSH ONETIME ONE Stop: 05/07/20 07:19 Last Admin: 05/07/20 07:31 Dose: 1 mg Documented by: Hydromorphone HCl (Dilaudid) 1 mg IVPUSH Q2H PRN PRN Reason: Pain Last Admin: 05/07/20 11:49 Dose: 1 mg Documented by: Sodium Chloride (Normal Saline) 1,000 mls @ 500 mls/hr IV ASDIRECTED [facility] Last Admin: 05/07/20 07:16 Dose: 150 mls/hr Documented by: Magnesium Sulfate 2 gm/ Premix 50 mls @ 25 mls/hr IV Q1H [facility] Stop: 05/09/20 12:29 Last Admin: 05/09/20 13:28 Dose: 25 mls/hr Documented by: Ibuprofen (Motrin) 600 mg PO Q6H PRN PRN Reason: Pain/Fever Last Admin: 05/08/20 07:52 Dose: 600 mg Documented by: Lactulose (Cephulac) 20 gm PO ONETIME ONE Stop: 05/08/20 11:46 Last Admin: 05/08/20 12:24 Dose: 20 gm Documented by: Metoclopramide HCl (Reglan) 7.5 mg IVPUSH ONETIME ONE Stop: 05/07/20 07:03 Last Admin: 05/07/20 07:16 Dose: 7.5 mg Documented by: Mometasone Furoate/Formoterol Fumar (Dulera 100-5 Mcg) 2 puff IH BID [facility] Last Admin: 05/07/20 20:16 Dose: 2 puff Documented by: Morphine Sulfate (Morphine) 2 mg IVPUSH Q4H PRN PRN Reason: Pain (severe 7-10) Last Admin: 05/08/20 16:45 Dose: 2 mg Documented by: - Exam Physical Findings Comments:: General: Alert, Oriented, Cooperative, weary appearing. HEENT: Pupils Equal, Pupils Reactive, EOMI Neck: Supple Lungs: No wheezes or rales. There are fine expiratory crackles in lower lobes bilaterally, left more than right. Cardiovascular: Regular Rate, Regular Rhythm GI/Abdominal Exam: Hypoactive bowel sounds. No tenderness to palpation today. No distended abdomen. Extremities: Normal Inspection, Normal Range of Motion, Non-Tender, No Pedal Edema, Normal Capillary Refill Peripheral Pulses: 2+: Posterior Tibial (L), Posterior Tibial (R) Skin: Warm, Dry, Intact Sepsis Event Note - Evaluation Sepsis Screening Result: No Definite Risk - Focused Exam Vital Signs: Vital Signs Temp Pulse Resp BP Pulse Ox 05/09/20 11:14 90 18 96/61 95 05/09/20 08:05 98.2 F 76 16 109/64 96 05/09/20 05:45 98.2 F 94 20 112/73 100 05/09/20 02:26 98.6 F 87 20 108/62 96 - Problem List & Annotations (1) Constipation SNOMED Code(s): 10378960 Code(s): K59.00 - CONSTIPATION, UNSPECIFIED Status: Acute Current Visit: Yes (2) Pneumonia SNOMED Code(s): 925316271 Code(s): J18.9 - PNEUMONIA, UNSPECIFIED ORGANISM Status: Acute Current Visit: Yes Qualifiers: Laterality: left Lung location: lower lobe of lung - Problem List Review Problem List Initiated/Reviewed/Updated: Yes - My Orders Last 24 Hours: My Active Orders 05/08/20 15:00 Cholecalciferol (Vitamin D3) [Vitamin D3] 5,000 unit PO DAILY 05/08/20 17:26 Promethazine [Phenergan] 12.5 mg Sodium Chloride 0.9% [Normal Saline] 50 ml IV Q6H 05/08/20 17:42 Ketorolac [Toradol] 30 mg IVPUSH Q8H PRN 05/09/20 11:37 Incentive Spirometry [RT Incentive Spirometry] [RC] Q1HWA 05/09/20 11:45 dexAMETHasone [Dexamethasone] 6 mg IV DAILY - Plan Plan:: Acute viral pneumonia secondary to COVID 19 -Patient came to ER with shortness of breath, fevers and chills at home. -COVID 19 swab positive. -Pt started on lovenox 40mg IV q24h as d-dimer normal but patient in hypercoagulable state due to COVID 19 infection. No need for full dose lovenox -Continue Rocephin 2g IV q24h and Zithromax daily for secondary bacterial infection. -Respiratory droplet precautions. -Starting vitamin D3 supplementation as her levels came back low. -Repeat CXR shows increased pneumonia LLL. -CRP up to 5.9 from 4.3, wheezing and increased pleuritic chest pain, adding dexamethasone 6mg daily. -Ordered incentive spirometer. Nausea and vomiting. -Probable complication from COVID-19 -Pt had BM yesterday, constipation relieved. -Gallbladder ultrasound shows gallstones and sludge but no inflammation or dilation. pt without abdominal pain -Zofran 4mg IV q4h as needed for nausea. -Continue bland diet and will see how patient tolerates. Dehydration. -Improving. -Stopping fluids today as patient is drinking well. We are afraid patient can become fluid overload very fast due to COVID pneumonia. We will watch respiratory status closely. DVT prophylaxis. Lovenox 40mg IV q24h as d-dimer normal but patient in hypercoagulable state due to COVID 19 infection. No need for full dose lovenox GI prophylaxis: -Protonix 40mg oral every afternoon. Pain/fever: Tylenol 650 mg q6h for pain or fever, ibuprofen 600mg oral q6h for mild pain, lortab 5/325 q6h for moderate pain, morphine 2mg IV q4h as needed for severe pain. Disposition: Starting dexamethasone. Will trend CRP. Monitoring pain and nausea/vomiting. Pt will remain until at least tomorrow afternoon.
[2020-05-09] MEDS: Azithromycin 500 MG in Sodium Chloride 0.9% 250 ML IV SCH (16:20)
[2020-05-09] MEDS: Pantoprazole 40 MG Tab.CR PO SCH (18:36)
[2020-05-10] MEDS: Ketorolac 30 MG/ML SDV IVPUSH PRN (03:55)
[2020-05-10] MEDS: cefTRIAXone 2 GM in Sodium Chloride 0.9% 100 ML IV SCH (08:21)
[2020-05-10] MEDS: Cholecalciferol (Vitamin D3) 5,000 UNIT Tab PO SCH (08:25)
[2020-05-10] MEDS: Enoxaparin 40 MG/0.4 ML Syringe SUBCUT SCH (08:27)
[2020-05-10] MEDS: Acetaminophen/HYDROcodone 325-5 MG Tab PO PRN (08:45)
[2020-05-10] MEDS: Dexamethasone 4 MG/ML 5 ML MDV IV SCH (08:47)
--- NOTE | 2020-05-10 10:31 | PCM.PN ---
- General Info Date of Service: 05/10/20 Subjective Update: The patient today was seen by me at bedside, case discussed with Dr. Verma. At about 3 AM, the patient had pain in left side of back/side of chest 9/10 pain which she felt took her breath away, caused her to feel cold sweats, and some dizziness. Vital signs at that time were checked, O2 saturation 100% on RA, BP and HR normal. The patient was given Toradol and pain decreased. Laying on her left side exacerbates pain. She has been using her incentive spirometer. She denies nausea. No vomiting since yesterday after lunch. She still does feel weak. Appetite has improved. She denies palpitations and does not feel dizzy. She does feel like her pain is getting better compared to when she was admitted. Vitals are stable. She has remained afebrile for >24h. Today finally her CRP started to downtrend and is 5.1 from 5.7 yesterday. - Patient Data Vitals - Most Recent: Last Vital Signs Temp 97.9 F 05/10/20 08:20 Pulse 52 L 05/10/20 08:20 Resp 18 05/10/20 08:20 BP 99/64 05/10/20 08:20 Pulse Ox 97 05/10/20 08:20 Weight - Most Recent: 174 lb 12.8 oz I&O - Last 24 Hours: Intake & Output 05/09/20 05/10/20 05/10/20 22:59 06:59 14:59 Intake Total 2645 720 Balance 2645 720 Lab Results Last 24 Hours: Laboratory Results - last 24 hr 05/10/20 05/10/20 Range/Units 06:02 06:02 D-Dimer, Quantitative 0.33 (0.19-0.50) mg/L Sodium 139 (136-145) mEq/L Potassium 3.9 (3.5-5.1) mEq/L Chloride 104 (98-107) mEq/L Carbon Dioxide 25 (21-32) mEq/L Anion Gap 13.9 (5-15) BUN 10 (7-18) mg/dL Creatinine 1.0 (0.55-1.02) mg/dL Est Cr Clr Drug Dosing 82.06 mL/min Estimated GFR (MDRD) > 60 (>60) mL/min BUN/Creatinine Ratio 10.0 L (14-18) Glucose 155 H (74-106) mg/dL Calcium 8.5 (8.5-10.1) mg/dL Magnesium 2.3 (1.8-2.4) mg/dl C-Reactive Protein 5.1 H* (<1.0) mg/dL Med Orders - Current: Current Medications Acetaminophen (Tylenol) 650 mg PO Q6H PRN PRN Reason: Pain (Mild 1-3) or Fever Hydrocodone Bitart/Acetaminophen ([place] 325-5 Mg) 1 tab PO Q6H PRN PRN Reason: Pain (moderate 4-6) Last Admin: 05/10/20 08:45 Dose: 1 tab Documented by: Albuterol (Proventil Hfa) 0 gm INH Q4H PRN PRN Reason: SHORTNESS OF BREATH Azithromycin (Zithromax) 250 mg PO DAILY [facility] Cholecalciferol (Vitamin D3) 5,000 unit PO DAILY [facility] Last Admin: 05/10/20 08:25 Dose: 5,000 unit Documented by: Dexamethasone (Dexamethasone) 6 mg IV DAILY [facility] Last Admin: 05/10/20 08:47 Dose: 6 mg Documented by: Enoxaparin Sodium (Lovenox) 40 mg SUBCUT DAILY [facility] Last Admin: 05/10/20 08:27 Dose: 40 mg Documented by: Promethazine HCl 12.5 mg/ (Sodium Chloride) 50.5 mls @ 100 mls/hr IV Q6H PRN PRN Reason: Nausea/Vomiting Last Admin: 05/08/20 18:20 Dose: 100 mls/hr Documented by: Ibuprofen (Motrin) 600 mg PO Q8H [facility] Ondansetron HCl (Zofran) 4 mg IVPUSH Q4H PRN PRN Reason: Nausea/Vomiting Last Admin: 05/09/20 13:08 Dose: 4 mg Documented by: Pantoprazole Sodium (Protonix) 40 mg PO QPM [facility] Last Admin: 05/09/20 18:36 Dose: 40 mg Documented by: Senna/Docusate Sodium (Senna Plus) 2 tab PO BEDTIME [facility] Last Admin: 05/09/20 20:39 Dose: 2 tab Documented by: Discontinued Medications Aspirin (Halfprin) 81 mg PO DAILY [facility] Last Admin: 05/08/20 11:04 Dose: Not Given Documented by: Bisacodyl (Dulcolax) 10 mg RECTAL ONETIME ONE Stop: 05/08/20 13:01 Last Admin: 05/08/20 17:17 Dose: Not Given Documented by: Hydromorphone HCl (Dilaudid) 1 mg IVPUSH ONETIME ONE Stop: 05/07/20 07:19 Last Admin: 05/07/20 07:31 Dose: 1 mg Documented by: Hydromorphone HCl (Dilaudid) 1 mg IVPUSH Q2H PRN PRN Reason: Pain Last Admin: 05/07/20 11:49 Dose: 1 mg Documented by: Sodium Chloride (Normal Saline) 1,000 mls @ 500 mls/hr IV ASDIRECTED [facility] Last Admin: 05/07/20 07:16 Dose: 150 mls/hr Documented by: Ceftriaxone Sodium 2 gm/ (Sodium Chloride) 100 mls @ 200 mls/hr IV Q24H [facility] Last Admin: 05/10/20 08:21 Dose: 200 mls/hr Documented by: Sodium Chloride (Normal Saline) 1,000 mls @ 30 mls/hr IV ASDIRECTED [facility] Last Admin: 05/09/20 05:47 Dose: 30 mls/hr Documented by: Azithromycin 500 mg/ Sodium (Chloride) 250 mls @ 250 mls/hr IV Q24H [facility] Last Admin: 05/09/20 16:20 Dose: 250 mls/hr Documented by: Magnesium Sulfate 2 gm/ Premix 50 mls @ 25 mls/hr IV Q1H [facility] Stop: 05/09/20 12:29 Last Admin: 05/09/20 13:28 Dose: 25 mls/hr Documented by: Ibuprofen (Motrin) 600 mg PO Q6H PRN PRN Reason: Pain/Fever Last Admin: 05/08/20 07:52 Dose: 600 mg Documented by: Ketorolac Tromethamine (Toradol) 30 mg IVPUSH Q8H PRN PRN Reason: pleuritic chest pain Last Admin: 05/10/20 03:55 Dose: 30 mg Documented by: Lactulose (Cephulac) 20 gm PO ONETIME ONE Stop: 05/08/20 11:46 Last Admin: 05/08/20 12:24 Dose: 20 gm Documented by: Metoclopramide HCl (Reglan) 7.5 mg IVPUSH ONETIME ONE Stop: 05/07/20 07:03 Last Admin: 05/07/20 07:16 Dose: 7.5 mg Documented by: Mometasone Furoate/Formoterol Fumar (Dulera 100-5 Mcg) 2 puff IH BID [facility] Last Admin: 05/07/20 20:16 Dose: 2 puff Documented by: Morphine Sulfate (Morphine) 2 mg IVPUSH Q4H PRN PRN Reason: Pain (severe 7-10) Last Admin: 05/08/20 16:45 Dose: 2 mg Documented by: - Exam Physical Findings Comments:: General: Alert, Oriented, Cooperative, weary appearing. HEENT: Pupils Equal, Pupils Reactive, EOMI Neck: Supple Lungs: No wheezes or rales. There are fine expiratory crackles in lower lobes bilaterally, left more than right. Cardiovascular: Regular Rate, Regular Rhythm GI/Abdominal Exam: Hypoactive bowel sounds. No tenderness to palpation today. No distended abdomen. Extremities: Normal Inspection, Normal Range of Motion, Non-Tender, No Pedal Edema, Normal Capillary Refill Peripheral Pulses: 2+: Posterior Tibial (L), Posterior Tibial (R) Skin: Warm, Dry, Intact Sepsis Event Note - Evaluation Sepsis Screening Result: No Definite Risk - Focused Exam Vital Signs: Vital Signs Temp Pulse Resp BP Pulse Ox 05/10/20 08:20 97.9 F 52 L 18 99/64 97 05/10/20 03:47 97.9 F 66 20 107/75 97 05/10/20 00:13 97.0 F 66 20 109/71 97 - Problem List & Annotations (1) Constipation SNOMED Code(s): 62671063 Code(s): K59.00 - CONSTIPATION, UNSPECIFIED Status: Acute Current Visit: Yes (2) Pneumonia SNOMED Code(s): 080467470 Code(s): J18.9 - PNEUMONIA, UNSPECIFIED ORGANISM Status: Acute Current Visit: Yes Qualifiers: Laterality: left Lung location: lower lobe of lung (3) Chest pain SNOMED Code(s): 18304485 Code(s): R07.9 - CHEST PAIN, UNSPECIFIED Status: Acute Current Visit: Yes - Problem List Review Problem List Initiated/Reviewed/Updated: Yes - My Orders Last 24 Hours: My Active Orders 05/09/20 11:37 Incentive Spirometry [RT Incentive Spirometry] [RC] Q1HWA 05/09/20 11:45 dexAMETHasone [Dexamethasone] 6 mg IV DAILY 05/10/20 11:00 Ibuprofen [Motrin] 600 mg PO Q8H 05/11/20 05:11 BASIC METABOLIC PANEL,BMP [CHEM] AM C-REACTIVE PROTEIN [CHEM] AM MAGNESIUM [CHEM] AM 05/11/20 09:00 Azithromycin [Zithromax] 250 mg PO DAILY - Plan Plan:: Acute viral pneumonia secondary to COVID 19 -Patient came to ER with shortness of breath, fevers and chills at home. -COVID 19 swab positive. -Pt started on lovenox 40mg IV q24h as d-dimer normal but patient in hypercoagulable state due to COVID 19 infection. No need for full dose lovenox -Continue antibiotics for total of 8 days. Changing to po today azithromycin 250mg oral for 4 more days. -Respiratory droplet precautions. -Starting vitamin D3 supplementation as her levels came back low. -Repeat CXR shows increased pneumonia LLL yesterday. Will repeat chest xray tomorrow to make sure no pleural effusion developing. -CRP finally downtrending to 5.1 from 5.9 yesterday, continue dexamethasone 6mg daily. -Continue incentive spirometer. Chest pain: -Pleuritic chest pain but d-dimer has remained normal. Vitals stable. -Pt has low risk for cardiovascular events but given COVID-19 infection, we will check EKG and cardiac enzymes to make sure no changes. -Ibuprofen 600mg q8h. Nausea and vomiting. -No vomiting since yesterday after lunch. -Probable complication from COVID-19 -Pt had BM yesterday, constipation relieved. -Gallbladder ultrasound shows gallstones and sludge but no inflammation or dilation. pt without abdominal pain -Zofran 4mg IV q4h as needed for nausea. -Continue bland diet and will see how patient tolerates. Cholelithiasis. -Information faxed to GI clinic and patient will follow up on outpatient basis. Dehydration. -Improving. -Stopping fluids today as patient is drinking well. We are afraid patient can become fluid overload very fast due to COVID pneumonia. We will watch respiratory status closely. DVT prophylaxis. Lovenox 40mg IV q24h as d-dimer normal but patient in hypercoagulable state due to COVID 19 infection. No need for full dose lovenox GI prophylaxis: -Protonix 40mg oral every afternoon. Pain/fever: Tylenol 650 mg q6h for pain or fever, ibuprofen q8h, ibuprofen 600mg oral q6h for mild pain, lortab 5/325 q6h for moderate pain, morphine 2mg IV q4h as needed for severe pain. Disposition: continue dexamethasone. Will trend CRP. Monitoring pain and nausea/vomiting. Patient will remain until at least tomorrow.
[2020-05-10] MEDS: Ibuprofen 600 MG Tab PO SCH ×2 (10:51→18:05)
[2020-05-10] MEDS ORDERED: Azithromycin 250 MG Tab PO SCH (16:00)
[2020-05-10] MEDS: Pantoprazole 40 MG Tab.CR PO SCH (17:49)
[2020-05-11] MEDS: Ibuprofen 600 MG Tab PO SCH (03:33)
[2020-05-11] MEDS: Enoxaparin 40 MG/0.4 ML Syringe SUBCUT SCH (08:02)
[2020-05-11] MEDS: Cholecalciferol (Vitamin D3) 5,000 UNIT Tab PO SCH (08:03)
--- NOTE | 2020-05-11 08:14 | PCM.DCSUM1 ---
Discharge Summary - Hospital Course HPI Initial Comments: Mrs. Garcia is a pleasant 34-year-old [place] female, without any significant past medical history. Patient presented to the ED today for worsening left flank pain associated with intractable nausea and vomiting. Patient reported for the past week, she has been having episodes of intractable nausea and vomiting as well as decreased p.o. intake. And 3 days ago, started having worsening of bilateral pain, occasional fevers and chills. Patient was recently seen yesterday in the ER where the patient reported dysuria/frequency before developing flank pain. UA that was done to the patient on both presentation negative for nitrites and leukocyte esterase. And reported over the past 3 days, she has been having worsening shortness of breath especially with exertion which the patient states flank pain precipitates shortness of breath. The patient describes pain as sharp in nature with radiation to the upper chest. Relieved with rest. Today denies dysuria, no diarrhea but reported epigastric pain. CT scan of abdomen and pelvis that was done to the patient, consistent for left lobe pneumonia, multiple gallstones within the gallbladder but negative for renal calculi. Given worsening of pain and shortness of breath patient decided to come to the hospital for further evaluation and will be admitted for further management. Onset of Symptoms: Reports: Gradual Left Flank Pain Score (Numeric/FACES): 10 Diagnosis: Stroke: No - Discharge Data Discharge Date: 05/11/20 Discharge Disposition: Home, Self-Care 01 Condition: Good - Referral to Home Health Primary Care Physician: PCP None - Discharge Diagnosis/Problem(s) (1) COVID-19 SNOMED Code(s): 130745983 ICD Code: U07.1 - COVID-19 Status: Acute Current Visit: Yes (2) Pneumonia SNOMED Code(s): 838486133 ICD Code: J18.9 - PNEUMONIA, UNSPECIFIED ORGANISM Status: Acute Current Visit: Yes Qualifiers: Laterality: left Lung location: lower lobe of lung (3) Pleurisy SNOMED Code(s): 758892993 ICD Code: R09.1 - PLEURISY Status: Acute Current Visit: Yes (4) Nausea & vomiting SNOMED Code(s): 88220174 ICD Code: R11.2 - NAUSEA WITH VOMITING, UNSPECIFIED Status: Acute Current Visit: Yes (5) Chest pain SNOMED Code(s): 65213493 ICD Code: R07.9 - CHEST PAIN, UNSPECIFIED Status: Acute Current Visit: Yes (6) Constipation SNOMED Code(s): 12691677 ICD Code: K59.00 - CONSTIPATION, UNSPECIFIED Status: Acute Current Visit: Yes (7) Flank pain, acute SNOMED Code(s): 235034051, 516564427 ICD Code: R10.9 - UNSPECIFIED ABDOMINAL PAIN Status: Acute Current Visit: Yes - Patient Summary/Data Hospital Course: Acute viral pneumonia secondary to COVID 19 -Patient came to ER with shortness of breath, fevers and chills at home. -COVID 19 swab positive. -Pt started on lovenox 40mg IV q24h as d-dimer normal but patient in hypercoagulable state due to COVID 19 infection. No need for full dose lovenox -Continue antibiotics for total of 8 days. Changing to po today azithromycin 250mg oral for 4 more days. -Respiratory droplet precautions. -Starting vitamin D3 supplementation as her levels came back low. -Repeat CXR shows increased pneumonia LLL yesterday. Will repeat chest xray tomorrow to make sure no pleural effusion developing. -CRP finally downtrending to 5.1 from 5.9 yesterday, continue dexamethasone 6mg daily. -Continue incentive spirometer. PLAN AT DISCHARGE 1. Azithromycin to complete 7 days 2. Medrol dose taper 3. Protonix while on steroids 4. Continue incentive spirometer Chest pain2/2 pleurisy, resolved -Pleuritic chest pain but d-dimer has remained normal. Vitals stable. -Pt has low risk for cardiovascular events but given COVID-19 infection, we will check EKG and cardiac enzymes to make sure no changes. PLAN AT DISCHARGE 1. Ibuprofen 600mg q8h as needed Cholelithiasis -Gallbladder ultrasound shows gallstones and sludge but no inflammation or dilation. -Pt without abdominal pain since 05/10 PLAN AT DISCHARGE 1. GI follow up as an outpatient Severe Vitamin D deficiency PLAN AT DISCHARGE 1. D3 50,000u weekly x 8 weeks 2. Follow weekly doses by daily supplementation Cholelithiasis. -Information faxed to GI clinic and patient will follow up on outpatient basis. Volume depletion, resolved Nausea and vomiting, resolved - Patient Instructions Diet: Usual Diet as Tolerated - Discharge Plan *PRESCRIPTION DRUG MONITORING PROGRAM REVIEWED*: Not Applicable *COPY OF PRESCRIPTION DRUG MONITORING REPORT IN PATIENT HARPER: Not Applicable Prescriptions/Med Rec: Cholecalciferol (Vitamin D3) [D3-50] 50,000 unit PO WEEKLY #8 capsule methylPREDNISolone [Medrol Dose Pack] 84 mg PO DAILY #1 dospk Ibuprofen [Motrin] 600 mg PO Q8H PRN #15 tablet PRN Reason: Pain Pantoprazole [ProTONIX] 40 mg PO QPM #7 tab.cr Sennosides [Senna] 8.6 mg PO BID #30 tablet Cholecalciferol (Vitamin D3) [Vitamin D3] 25 mcg PO DAILY #60 capsule Azithromycin [Zithromax] 250 mg PO 1600 #6 tablet Home Medications: Home Meds Azithromycin [Zithromax] 250 mg PO 1600 #6 tablet 05/11/20 [Rx] Cholecalciferol (Vitamin D3) [D3-50] 50,000 unit PO WEEKLY #8 capsule 05/11/20 [Rx] Cholecalciferol (Vitamin D3) [Vitamin D3] 25 mcg PO DAILY #60 capsule 05/11/20 [Rx] Ibuprofen [Motrin] 600 mg PO Q8H PRN #15 tablet 05/11/20 [Rx] Pantoprazole [ProTONIX] 40 mg PO QPM #7 tab.cr 05/11/20 [Rx] methylPREDNISolone [Medrol Dose Pack] 84 mg PO DAILY #1 dospk 05/11/20 [Rx] Oxygen Therapy Mode: Room Air Patient Handouts: COVID-19 Frequently Asked Questions, Pyelonephritis, Adult, [id number], Sepsis, Diagnosis, Adult, COVID-19: How to Protect Yourself and Others - [facility] Forms: ED Department Discharge Referrals: PCP,None [Primary Care Provider] - - Discharge Summary/Plan Comment DC Time >30 min.: No - General Info Date of Service: 05/11/20 Subjective Update: Feeling OK Tolerating diet Ambulating alone No pain No SOB - Patient Data Vitals - Most Recent: Last Vital Signs Temp 98.1 F 05/11/20 03:33 Pulse 50 L 05/11/20 03:33 Resp 12 05/11/20 03:33 BP 102/63 05/11/20 03:33 Pulse Ox 97 05/11/20 03:33 Weight - Most Recent: 79.424 kg - Exam General: Reports: Alert, Oriented, Cooperative, No Acute Distress HEENT: Reports: Pupils Equal, Pupils Reactive, EOMI, Mucous Membr. Moist/Windmill Neck: Reports: Supple, Trachea Midline, +2 Carotid Pulse wo Bruit. Denies: Lymphadenopathy Lungs: Reports: Clear to Auscultation, Normal Respiratory Effort, Crackles (very occasional on left apex). Denies: Decreased Breath Sounds, Rales, Rhonchi, Rub, Stridor, Wheezing Cardiovascular: Reports: Regular Rate, Regular Rhythm. Denies: Murmurs, Gallops, Rubs GI/Abdominal Exam: Normal Bowel Sounds, Soft, Non-Tender. No: Distended, Guarding, Rigid, Rebound Back Exam: Denies: CVA Tenderness (L), CVA Tenderness (R) Extremities: Normal Inspection Neurological: Reports: No New Focal Deficit
--- NOTE | 2020-05-11 08:32 | CR ---
Chest: Portable view of the chest was obtained. Comparison: Prior chest x-ray of 05/09/20. Vague increased density within left lung base is seen. Findings are felt to be slightly improved from previous study. Lungs otherwise are clear. No new parenchymal change is seen. Heart size and mediastinum are normal. Bony structures are unremarkable. Impression: 1. Slightly improving parenchymal density within the left lower lung when compared to previous exam. 2. No new abnormality is identified. Diagnostic code #3 Study was dictated in MDT
[2020-05-11] MEDS: Dexamethasone 4 MG/ML 5 ML MDV IV SCH (08:54)
== END 2020-05-11 09:35 | disposition home or self-care (01) | DRG 177 ==
LOC: JD.ED 06:45 → JD.MS 09:31
PROVIDERS: ADMIT Family Medicine; ATTEND Family Medicine
PROC: 8E0ZXY6 Isolation (ICD-10-PCS; principal; 2020-05-07)
DX: U07.1 COVID-19 (principal); J12.89 Other viral pneumonia; K59.00 Constipation, unspecified; E86.0 Dehydration; K80.80 Other cholelithiasis without obstruction; R09.1 Pleurisy; E55.9 Vitamin D deficiency, unspecified; Z90.49 Acquired absence of other specified parts of digestive tract
CPT/HCPCS: 36415; 71045; 71045-26; 74176; 74176-26; 76705; 76705-26; 80048; 80053; 81001; 82009; 82306; 82550; 82728; 83605; 83615; 83690; 83735; 84100; 84145; 84484; 85025; 85379; 86140; 87804; 93005; 94640; 94762; 96361; 96365; 96375; 99223; 99232; 99238; 99284; 99285-25; A9270-GY; J0456; J0696; J1100; J1170; J1650; J1885; J2270; J2405; J2550; J2765; J3475; J7030; J7050; U0002